=== PATIENT | female | born 1995 | race Caucasian/White ===

== ENCOUNTER 2022-11-20 10:42 | Outpatient (CLI) | payer MEDICAID, SELFPAY ==
[2022-11-20 15:35] LABS: Chlamydia DNA Amplified* NOT DETECTED (No Detected); GC DNA Amplified* NOT DETECTED (No Detected)
== END 2022-11-20 10:43 | disposition home or self-care (01) ==
PROVIDERS: PCP Obstetrics & Gynecology; Visit Provider Registered Nurse
DX: Z34.91 Encounter for supervision of normal pregnancy, unspecified, first trimester (principal); Z3A.08 8 weeks gestation of pregnancy
CPT/HCPCS: 76817; 86592; 86703; 86762; 86787; 86803; 86850; 86870; 86900; 86901; 87086; 87340; 87491; 87591

== ENCOUNTER 2022-12-18 10:45 | Outpatient (CLI) | payer MEDICAID, SELFPAY | END 2022-12-18 10:46 | disposition home or self-care (01) | LOC: NFLDREF 12-20 09:21 | PROVIDERS: Referring Provider Obstetrics & Gynecology; Visit Provider Registered Nurse | DX: Z34.90 Encounter for supervision of normal pregnancy, unspecified, unspecified trimester (principal) | CPT/HCPCS: 86850 ==

== ENCOUNTER 2023-02-12 13:50 | Outpatient (CLI) | payer MEDICAID, SELFPAY ==
--- NOTE | 2023-02-12 14:00 | CRLHL7_ITS ---
For Patients: As a result of the Century Cures Act, medical imaging exams and procedure reports are released immediately into your electronic medical record. You may view this report before your referring provider. If you have questions, please contact your health care provider. INDICATION: Evaluate anatomy. COMPARISON: 11/20/2022 TECHNIQUE: Real time schofield scale imaging of the fetus was performed as well as color Doppler analysis of the umbilical vessels. FINDINGS: Sonographic imaging demonstrates a single living intrauterine gestation. Fetus demonstrates a regular cardiac rate of 150 beats per minute. Fetus has a variable position. The placenta lies posteriorly without evidence of placenta previa. The edge of the placenta is located 5.7 cm from the internal cervical os. Amniotic fluid volume appears normal. Single deepest vertical pocket: 3.6 cm. The cervix is closed and measures 3.8 cm in length. The composite ultrasound gestational age is calculated at 20 weeks 3 days with an estimated sonographic due date of 06/29/2023. The estimated weight is 343 grams which lies at the 29th %. The following biometric measurements were obtained: Biparietal diameter: 4.8 cm/20 weeks 4 days 48th% Head circumference: 18.1 cm/20 weeks 3 days 37th% Abdominal circumference: 14.8 cm/20 weeks 0 days 27th% Femur length: 3.3 cm/20 weeks 3 days 37th% The HC/AC ratio measures: 1.22 range (1.07-1.25) On anatomic survey, there is a normal appearance of the cerebral ventricles, cavum septi pellucidi, cisterna magna and cerebellum. The nose, lips, and facial profile appear normal. The cervical, thoracic and lumbar spine are well visualized and appear normal. There is a normal four-chamber heart view and the left and right ventricular outflow tracts appear normal. The diaphragm and stomach appear normal. The kidneys and bladder also appear normal. There is a normal three-vessel cord and cord insertion site. The four extremities appear normal. IMPRESSION: Normal OB ultrasound exam with concordance of clinical and sonographic dating. No intrinsic abnormalities noted on anatomic survey. Dictated by Andrez Rod MD @ 02/12/2023 3:30:13 PM (Electronically Signed)
== END 2023-02-12 13:51 | disposition home or self-care (01) ==
LOC: US 13:51
PROVIDERS: Visit Provider Advanced Practice Midwife
DX: Z34.92 Encounter for supervision of normal pregnancy, unspecified, second trimester (principal); Z3A.20 20 weeks gestation of pregnancy
CPT/HCPCS: 76805

== ENCOUNTER 2023-04-05 11:10 | Outpatient (CLI) | payer MEDICAID, SELFPAY | END 2023-04-05 11:11 | disposition home or self-care (01) | LOC: NFLDREF 04-07 06:21 | PROVIDERS: Visit Provider Advanced Practice Midwife | DX: Z34.90 Encounter for supervision of normal pregnancy, unspecified, unspecified trimester (principal) | CPT/HCPCS: 86592 ==

== ENCOUNTER 2023-06-01 10:00 | Outpatient (CLI) | payer OTHER, SELFPAY | END 2023-06-01 10:01 | disposition home or self-care (01) | LOC: NFLDREF 06-03 12:32 | PROVIDERS: Visit Provider Advanced Practice Midwife | DX: Z34.03 Encounter for supervision of normal first pregnancy, third trimester (principal) | CPT/HCPCS: 87081; 87653 ==

== ENCOUNTER 2023-06-07 13:01 | Outpatient (CLI) | payer OTHER, SELFPAY ==
--- NOTE | 2023-06-07 13:00 | CRLHL7_ITS ---
For Patients: As a result of the Century Cures Act, medical imaging exams and procedure reports are released immediately into your electronic medical record. You may view this report before your referring provider. If you have questions, please contact your health care provider. INDICATION: Follow up growth. Thirty-seven week 0 day gestation TECHNIQUE: Real time shcofield scale imaging of the fetus was performed. COMPARISON: None FINDINGS: There is a kent gestation in vertex presentation. Amniotic fluid is polyhydramnios. Single deepest vertical pocket: 8.7 cm. heart rate is 138 beats per minute. Cervix was not visualized. Placenta is posterior. BIOMETRY DATA: BPD is 9.3 cm 37 weeks 4 days. 81% Head circumference is 33.5 cm 38 weeks 2 days. 56% Abdominal circumference is 32.3 cm 36 weeks to days. 41% Femur length is 6.9 cm 35 weeks 1 days. 10% Head/abdomen ratio is 1.04. Estimated weight is 2909 grams. Percentile 38%. Gestational age by ultrasound 36 weeks 6 days. Estimated date of delivery by ultrasound 06/29/2023. IMPRESSION: 1. Single intrauterine . Measurements are consistent with dates. 2. Polyhydramnios. Dictated by Linden Ding MD @ 06/08/2023 8:39:43 AM (Electronically Signed)
== END 2023-06-07 13:02 | disposition home or self-care (01) ==
LOC: US 13:02
PROVIDERS: Visit Provider Advanced Practice Midwife
DX: Z34.03 Encounter for supervision of normal first pregnancy, third trimester (principal); O40.3XX0 Polyhydramnios, third trimester, not applicable or unspecified; Z3A.37 37 weeks gestation of pregnancy
CPT/HCPCS: 76816

== ENCOUNTER 2023-06-15 12:18 | Outpatient (CLI) | payer OTHER, SELFPAY ==
--- NOTE | 2023-06-15 12:15 | CRLHL7_ITS ---
For Patients: As a result of the Century Cures Act, medical imaging exams and procedure reports are released immediately into your electronic medical record. You may view this report before your referring provider. If you have questions, please contact your health care provider. OBSTETRICAL ULTRASOUND LIMITED- BIOPHYSICAL PROFILE, 06/15/2023 INDICATION: Polyhydramnios; biophysical profile. 1, para 0 MARVIN by LMP: 06/28/2023 Gestational age: 38 weeks 1 day COMPARISON: 06/07/2023 TECHNIQUE: Transabdominal obstetrical ultrasound. FINDINGS: Gestation: Single Cervix: Not visualized positioning: Vertex Amniotic fluid: 8.0 cm SDP SHEREEN: 19.0 cm BIOPHYSICAL PROFILE: Total score: 6/8 Gross body movements: 2 tone: 2 Respiratory activity: 0 Amniotic fluid SDP: 2 Placenta position: Posterior heart rate: 135 bpm There is the appearance of some dilated fluid-filled bowel loops present in the abdomen. IMPRESSION: 1) Biophysical profile score is 6 of 8. 2) Visualization of fluid-filled dilated bowel loops within the fetus measuring up to 1.9 cm. 3) Polyhydramnios with SHEREEN measuring 19 cm. ADRIENNE GRAVES M.D. Diagnostic/Breast Radiologist [email or web address] Transcribed: 10:[address]/Dictated by: Adrienne Graves MD @ 06/17/2023 6:56:00 AM (Electronically Signed)
== END 2023-06-15 12:19 | disposition home or self-care (01) ==
LOC: US 12:18
PROVIDERS: Visit Provider Advanced Practice Midwife
DX: O40.3XX0 Polyhydramnios, third trimester, not applicable or unspecified (principal); Z3A.38 38 weeks gestation of pregnancy
CPT/HCPCS: 76819

== ENCOUNTER 2023-06-30 19:53 | Inpatient (IN) | payer OTHER, SELFPAY ==
[2023-06-30 19:30] VITALS: BP 130/85; PULSE 73
[2023-06-30 19:35] VITALS: RESP 18; TEMP 37
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
[2023-06-30 20:44] VITALS: BMI 24.4
[2023-06-30 22:57] VITALS: RESP 18; TEMP 37.2
[2023-06-30 23:05] VITALS: BP 125/75; PULSE 111
[2023-07-01] VITALS (52 sets, daily range): BP systolic 92–143; BP diastolic 55–91; PULSE 69–120; RESP 16–18; TEMP 36.4–37.2; O2SAT 91–100
[2023-07-01] MEDS: LACTATED RINGERS 1000 ML 1,000 ML IV ×3 (02:37→04:54)
[2023-07-01] MEDS: PHENYLEPHRINE 100 MCG/ML SYRINGE IVP ×4 (03:18→03:53)
[2023-07-01] MEDS: ePHEDrine sulfate 5 MG/ML inj 10 MG IVP (03:57)
[2023-07-01] MEDS: OXYTOCIN 30 unit/500 ML in NS 30 UNIT/500 ML BAG 300 UNIT IVPB (05:23)
[2023-07-01] MEDS: miSOPROStoL 800 MCG/4 TABLET PR (06:08)
[2023-07-01] MEDS: LIDOCAINE 1 % PF 30 ML INJECTION (06:08)
--- NOTE | 2023-07-01 06:32 | W.PM.OBVAGDE ---
OB Procedure Vag Delivery Mother Details Mother Details: The patient is a 27 year-old, 1, Para 0, admitted on 06/30/23 at 40.3Days gestation. Additional Details Amniotic Membrane Status: intact Amniotic Membrane Rupture Date: 06/30/23 Amniotic Membrane Rupture Time: 23:36 Heart: heart tones during second stage were [] Delivery Details Delivery Date: 07/01/23 Delivery Time: 05:17 Infant Gender: Male Infant Viability: Alive; Heart Rate Present Delivery Details: Delivered over [intact perineum] via [spontaneous] vaginal delivery. was placed on maternal abdomen.? Cord was clamped and cut after a 30-60 second delay. Nose and mouth were bulb suctioned.? weight pending. Additional Details Shoulder Dystocia: No Event Summary Status: Mother and were stable after delivery.
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
--- NOTE | 2023-07-01 06:55 | PM.ANBPRC ---
[facility] Medical History (Updated 06/30/23 @ 20:42 by La Walker CNM) History of eating disorder ?Z86.59 - Personal history of other mental and behavioral disorders (ICD-10) Surgical History (Updated 11/20/22 @ 13:33 by Anna Wright CNP) S/P hernia surgery ?Z98.890 - Other specified postprocedural states (ICD-10) ?Z87.19 - Personal history of other diseases of the digestive system (ICD-10) Social History What is your current living situation?: I presently have a place to live Problems where you live: no known problems In the past 12 months, utilities in danger of being shut off: no In past 12 months, lack of transportation kept you from medical appts, meetings, work, or getting things needed for daily living: no In the past 12 mos, have been you worried that your food would run out before you had money to buy more?: never true In the past 12 mos, the food you bought just didn't last and you didn't have money to buy more?: never true Smoking Status: Never smoker How often does anyone, including family, friends and others, physically hurt you: never How often does anyone, including family, friends and others, insult or talk down to you: never How often does anyone, including family, friends and others, threaten you with harm: never How often does anyone, including family, friends and others, scream or curse at you: never Little interest or pleasure in doing things: not at all Feeling down, depressed, or hopeless: not at all Meds Home Medications and Allergies Home Medications Medication Instructions Recorded Confirmed Type docosahexaenoic acid 200 mg 200 mg PO DAILY 11/20/22 06/30/23 History capsule ( DHA) Allergies Allergy/AdvReac Type Severity Reaction Status Date / Time No Known Drug Allergies Allergy Verified 06/29/23 12:51 Results Vital Signs Vital Signs: Last Vital Signs Temp 98.9 F 07/01/23 06:05 Pulse 86 07/01/23 06:52 Resp 18 07/01/23 06:05 BP 116/61 07/01/23 06:52 Pulse Ox 100 07/01/23 04:09 Weight: 70.715 kg Height: 170.18 cm Anesthesia Procedures Intrathecal Patient Location: OB Start Time: 03:00 Stop Time: 03:45 Start Date: 07/01/23 Stop Date: 07/01/23 Reason for Block: procedure for pain Patient Position: sitting Performed By: Bessie Rosario Preanesthetic Checklist: IV checked, site marked, risks and benefits discussed, monitors and equipment checked, pre-op evaluation, timeout performed and anesthesia consent Prep: chlorhexidine gluconate Monitoring: blood pressure monitoring, continuous pulse oximetry and heart rate Approach: midline Vertebral Space: lumbar (1-5) Needle Type: Pencan Injection Technique: single-shot Needle gauge: 25 Needle Length (cm): 10 cm
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
[2023-07-01] MEDS: DOCUSATE SODIUM 100 MG CAPSULE PO (10:17)
--- NOTE | 2023-07-01 14:12 | PM.ANPOST ---
Post Anesthesia Note Post Anesthesia Note Patient seen: Inpatient Respiratory Status: adequate Cardiovascular Status: adequate Mental Status: baseline Pain: adequate Temp: baseline Anesthetic awareness: N/A Complications: none Follow care: none
[2023-07-01] MEDS: ESCITALOPRAM 10 MG TABLET PO (21:10)
[2023-07-02 02:57] VITALS: BP 133/86; PULSE 77; RESP 16; TEMP 36.5; O2SAT 98
[2023-07-02] MEDS: IBUPROFEN 600 MG TABLET PO ×2 (06:35→13:50)
[2023-07-02 08:55] VITALS: BP 133/79; PULSE 72; RESP 16; TEMP 36.6; O2SAT 98
--- NOTE | 2023-07-02 10:32 | P.DS_ITS ---
DS: Providers Provider Date Seen: 07/02/23 Date of admission: 06/30/23 19:53 Primary care physician: Not a Local Provider Admitting Clinician: La Walker CNM Attending Physician on discharge: Sandra Meek CNM Date of Discharge: 07/02/23 DS: Diagnosis Discharge Diagnosis (1) care and examination immediately after delivery: Status: Acute (2) Lactating mother: Status: Acute Exam Narrative: Exam Narrative: GENERAL APPEARANCE:? normal affect, alert, no distress MOOD:? appropriate CHEST:? clear to auscultation HEART:? regular rate and rhythm ABDOMEN:? soft, non-tender the uterine fundus is firm At Umbilicus, Midline and is appropriate for the stage of recovery. PERINEUM:? mild edema of the perineum, there is a Perineal Laceration,? 2nd degree that is healing well. EXTREMITIES:? normal and no edema Const: Vital Signs, click to edit/add: Vital Signs - 24 hr 07/01/23 12:39 07/01/23 15:52 07/01/23 16:52 Temperature 98.3 F Pulse Rate [Blood Pressure Cuff] 105 H 78 Respiratory Rate 16 16 Blood Pressure [Le ft Arm] 126/83 134/91 H 123/83 Pulse Oximetry 100 94 Oxygen Delivery Me thod Room Air 07/01/23 21:40 07/02/23 02:57 07/02/23 08:55 Temperature 97.6 F 97.7 F 97.8 F Pulse Rate [Blood Pressure Cuff] 87 77 72 Respiratory Rate 16 16 16 Blood Pressure [Le ft Arm] 122/80 133/86 133/79 Pulse Oximetry 98 98 98 Oxygen Delivery Me thod Room Air Room Air Room Air Documenting provider has reviewed patient's vital signs: yes OB - DS: Summary Hospital Course Hospital Course: Tasia is a 27 y.o. who was admitted to L & D for labor. ?She had an uncomplicated NVD.?The patient feels well. ?The pain is well controlled with current medications. ?She has no new complaints. ?She is breast feeding and reports things are going well.? the patient has done well.? Vitals have been stable.? She has remained afebrile.? Has a good appetite, is tolerating a general diet. ?She is voiding without difficulty.? She is passing gas and has not had a bowel movement.? She is ambulating and denies any dizziness.? Has Small amount of rubra lochia. ?She is undecided about prevention. Peripartum Data delivery method: Vaginal Laceration description: Perineal - 2nd Degree complications: none [place] Gender: Male Infant Discharge Plan: Home Status at Discharge Functional status at discharge: independent ambulation Overall status at discharge: patient is progressing back to baseline Time Spent with Patient Time attestation: Total time spent providing and/or coordinating discharge services: Time spent: Less than 30 minutes Discharge Plan Discharge Disposition: Home, Self-Care Date of Admission: 06/30/23 19:53 Attending Provider on Discharge: Sandra Meek Primary Care Provider: Provider,Not a Local Condition: Stable Anticipated Discharge Date/Time: 07/02/23 12:00 Discharge Medications: New acetaminophen 500 mg Tablet 1,000 mg PO Q6H PRNQty: 0 0RF docusate sodium 100 mg Capsule 100 mg PO DAILY Qty: 90 2RF ibuprofen 600 mg Tablet 600 mg PO Q6H PRNQty: 30 0RF Continued DHA 200 mg capsule 200 mg PO DAILY hydroxyzine HCl 10 mg tablet 10 mg PO QHS PRN (Reason: sleep) Qty: 90 4RF escitalopram oxalate [Lexapro] 10 mg tablet 10 mg PO QDAY Qty: 90 0RF Discharge Orders: Discharge Order (Routine); Ordered 07/02/23 Ordered By: Sandra Meek Patient Education: OB Over the Counter Medication Information, OB Vaginal/Breast Feeding Additional Instructions: Discharge instructions were reviewed with the patient including signs and symptoms of infection and home going medications Nothing vaginally for 6 weeks: no tampons or intercourse Off Work or School for 6 weeks 2-week visit: discuss feeding concerns, review control options and screen for anxiety/depression. 6-week visit for an annual exam. consultation services are available to all mothers and babies for the first year after delivery.? To make an appointment, please call [phone]. Activity Level: Activity as Tolerated Discharge Diet: Regular Follow Up Appointments: Provider,Not a Local [Primary Care Provider] - [facility] [Provider Group] Forms: [facility] Info Instructions
[2023-07-02] MEDS: DOCUSATE SODIUM 100 MG CAPSULE PO (13:52)
--- NOTE | 2023-07-09 07:54 | PM.OBCN1 ---
OB - CN: HPI Date of Consult Date Seen: 07/01/23 Patient: [facility] Patient Consult date: 07/09/23 Requesting Physician: La Walker CNM Primary Care Provider: Not a Local Provider Consult Narrative Narrative: The patient is a 27 year old G 1 P 1 at 40 3/7 weeks gestation that has just delivered vaginally. I was consulted by PRIYANK for potential manual removal of placenta as it has been now more than 30 minutes and placenta has not delivered. So far, no concerns with heavy bleeding. Maternal status stable. History History 1 Elective abortions Para 1 Spontaneous abortions Hx # Term Pregnancies Ectopic pregnancies Hx # Pregnancies Multiple births Number of Living Children 0 Labs Blood type: A (+) positive GBS status: negative OB Labs: Lab Assessment Start: 06/30/23 20:00 Freq: ONCE Status: Complete Protocol: PC.OBGBS Activity Type Activity Date Activity User E-sign Co-sign Detail Recorded Client Recorded Date Recorded By Document 06/30/23 20:37 JASPER [id number] 06/30/23 20:38 JASPER 06/30/23 20:37 Lab Assessment GBS Status negative GBS Additional Criteria None No Treatment Needed OK Are Labs Available Yes Maternal Blood Type A Maternal RH Factor Positive Evaluate Maternal Rubella Immune Status Immune Hepatitis B Surface Antigen Negative Maternal HIV Status Negative Maternal Syphillis (RPR) Status Negative [facility] Medical History (Updated 07/07/23 @ 00:01 by Luna Mendiola) History of eating disorder ?Z86.59 - Personal history of other mental and behavioral disorders (ICD-10) Surgical History (Updated 11/20/22 @ 13:33 by Anna Wright CNP) S/P hernia surgery ?Z98.890 - Other specified postprocedural states (ICD-10) ?Z87.19 - Personal history of other diseases of the digestive system (ICD-10) Social History What is your current living situation?: I presently have a place to live Problems where you live: no known problems In the past 12 months, utilities in danger of being shut off: no In past 12 months, lack of transportation kept you from medical appts, meetings, work, or getting things needed for daily living: no In the past 12 mos, have been you worried that your food would run out before you had money to buy more?: never true In the past 12 mos, the food you bought just didn't last and you didn't have money to buy more?: never true Smoking Status: Never smoker How often does anyone, including family, friends and others, physically hurt you: never How often does anyone, including family, friends and others, insult or talk down to you: never How often does anyone, including family, friends and others, threaten you with harm: never How often does anyone, including family, friends and others, scream or curse at you: never Little interest or pleasure in doing things: not at all Feeling down, depressed, or hopeless: not at all Meds Home Medications and Allergies Home Medications Medication Instructions Recorded Confirmed Type docosahexaenoic acid 200 mg 200 mg PO DAILY 11/20/22 06/30/23 History capsule ( DHA) Allergies Allergy/AdvReac Type Severity Reaction Status Date / Time No Known Drug Allergies Allergy Verified 06/29/23 12:51 OB - H&P: Exam Physical Exam: Vital signs: Temp Pulse Resp BP Pulse Ox O2 Del Method 97.8 F 72 16 133/79 98 Room Air 07/02/23 08:55 07/02/23 08:55 07/02/23 08:55 07/02/23 08:55 07/02/23 08:55 07/02/23 08:55 Narrative: Upon arrival to the room umbilical cord clamped with a long Emi forceps. Gentle traction of umbilical cord did not produce significant descent of umbilical cord or no other signs of placental detachment and delivery. Patient with intrathecal anesthesia and still with good coverage for pain. I then proceeded to perform a manual evaluation and sweep for removal of placenta. At this time about half of the placenta palpated at the cervix. A gentle manual sweep was performed and placenta delivered right after. Uterus was palpated well contracted and no concerns for persistent bleeding. She had received 100 mcg of rectal Cytotec after delivery. Evaluation of placenta performed and this was confirmed to be complete. Patient tolerated procedure well. Care resumed by CNM. OB - CN: A/P Assessment and Plan (1) care and examination immediately after delivery: Status: Acute (2) Lactating mother: Status: Acute Plan Consult for manual delivery of retained placenta after spontaneous vaginal delivery. Patient tolerated procedure well. Care will be resumed by CNM. Re consult if needed.
== END 2023-07-02 15:02 | disposition home or self-care (01) | DRG 541 ==
LOC: OB OUT 19:54 → OB 19:54
PROVIDERS: Admitting Provider Advanced Practice Midwife; Visit Provider Advanced Practice Midwife
DX: O99.344 Other mental disorders complicating childbirth (principal); F41.9 Anxiety disorder, unspecified; F43.10 Post-traumatic stress disorder, unspecified; Z62.810 Personal history of physical and sexual abuse in childhood; O73.0 Retained placenta without hemorrhage; O77.0 Labor and delivery complicated by meconium in amniotic fluid; O70.1 Second degree perineal laceration during delivery; Z3A.40 40 weeks gestation of pregnancy; Z37.0 Single live birth
CPT/HCPCS: 01967; 85025; 86592; 86850; 86900; 86901; A9270; J2001; J2371; J7120

== ENCOUNTER 2024-07-19 09:12 | Outpatient (CLI) | payer OTHER, SELFPAY ==
--- NOTE | 2024-07-19 09:15 | CRLHL7_ITS ---
For Patients: As a result of the Century Cures Act, medical imaging exams and procedure reports are released immediately into your electronic medical record. You may view this report before your referring provider. If you have questions, please contact your health care provider. OB < 14 WEEKS CLINICAL HISTORY: Dating, viability. TECHNIQUE: Real time schofield scale imaging of the fetus was performed transvaginally. COMPARISON: None. FINDINGS: LMP: 05/17/2024. MARVIN by LMP: 02/21/2025. GA: 9 weeks 0 days. CRL: 2.3 cm, 9 weeks 0 days. MARVIN 02/21/2025. FHR: 171 bpm. Gest Sac: 3.3 cm, appears within normal limits. Yolk Sac: 4.1 mm, appears within normal limits. Right Ovary: 2.7 x 2.6 2.7 cm, within normal limits. Left Ovary: 2.8 x 1.6 x 2.7 cm, within normal limits. IMPRESSION: 1. Sonographic gestational age 9 weeks 0 days and sonographic due date 02/21/2025. 2. Subchorionic hemorrhage measures 2.2 x 0.9 x 0.8 cm. Andrez Rod M.D. Diagnostic Radiologist [email or web address] Transcribed: 1:04 pm DW/Dictated by: Andrez Rod MD @ 07/19/2024 12:56:00 PM (Electronically Signed)
== END 2024-07-19 09:13 | disposition home or self-care (01) ==
LOC: US 09:13
PROVIDERS: Visit Provider Advanced Practice Midwife
DX: Z34.91 Encounter for supervision of normal pregnancy, unspecified, first trimester (principal); O20.9 Hemorrhage in early pregnancy, unspecified; Z3A.09 9 weeks gestation of pregnancy
CPT/HCPCS: 76817

== ENCOUNTER 2024-07-19 10:23 | Outpatient (CLI) | payer OTHER, SELFPAY | END 2024-07-19 10:24 | disposition home or self-care (01) | PROVIDERS: Visit Provider Advanced Practice Midwife | DX: Z34.91 Encounter for supervision of normal pregnancy, unspecified, first trimester (principal); Z3A.09 9 weeks gestation of pregnancy | CPT/HCPCS: 83020; 83021; 85660; 86592; 86703; 86704; 86706; 86762; 86787; 86803; 86850; 86900; 86901; 87086; 87340 ==

== ENCOUNTER 2024-10-12 09:35 | Outpatient (CLI) | payer OTHER, SELFPAY ==
--- NOTE | 2024-10-12 09:15 | CRLHL7_ITS ---
For Patients: As a result of the Century Cures Act, medical imaging exams and procedure reports are released immediately into your electronic medical record. You may view this report before your referring provider. If you have questions, please contact your health care provider. OBSTETRICAL ULTRASOUND ??? ANATOMY SURVEY, 10/12/2024 INDICATION: anatomy survey. CLINICAL HISTORY: LMP: 05/17/2024 MARVIN by LMP: 02/21/2025 Gestational age: 21 weeks 1 day TECHNIQUE: Real-time schofield-scale transabdominal imaging of the fetus was performed. PREVIOUS ULTRASOUND: 07/19/2024 FINDINGS: position: Multiple positions; vertex, transverse, head to maternal right, left. Cervix: Visualized Technique: Transabdominal Length of closed cervix: 5.0 cm Placenta position: Anterior Technique: Transabdominal Placenta tip to internal os: 5+ cm Umbilical cord: 3-vessel cord Placental insertion: Central Amniotic fluid: 4.1 cm SDP (greater than/equal to 2 to less than 8 cm) ANATOMY SURVEY: Observed Structures Cerebellum: Yes; 2.4 cm, 23 weeks 2 days Cisterna magna: Yes; 4.8 mm Nuchal fold: Yes; 6.5 mm Lateral ventricle: Yes; 6.6 mm CSP: Yes Midline falx: Yes Choroid plexus: Yes Spine: Yes Stomach: Yes Abdominal cord insert: Yes Urinary bladder: Yes Kidneys: Yes Diaphragm: Yes Nose/lips: Yes Orbital view: Yes Profile: Yes Upper extremities: Yes Lower extremities: Yes Hands: Yes Feet: Yes 4-chamber heart: Yes, incomplete visualization LVOT: Yes, suboptimal due to position RVOT: Yes, suboptimal due to position 3VV: Yes, suboptimal due to position 3VTV: Yes, suboptimal due to position BIOMETRY BPD: 5.1 cm, 21 weeks 3 days, 58% HC: 19.0 cm, 21 weeks 2 days, 46% AC: 15.8 cm, 20 weeks 6 days, 35% FL: 3.6 cm, 21 weeks 2 days, 44% FL/AC: 22.53% HC/AC ratio: 1.2 heart rate: 159 bpm age by this ultrasound: 21 weeks 4 days MARVIN by this ultrasound: 02/18/2025 Estimated weight: 397.90 grams (0 pounds 14 ounces) Percentile by MARVIN: 41% IMPRESSION: 1) Concordance of clinical and sonographic dating. 2) Incomplete visualization of the 4-chamber heart, outflow tracts, 3-vessel view and 3-vessel trachea view due to position. Remainder of the anatomic survey is normal. Short-term follow-up is recommended. ANDREZ DE LEON M.D. Diagnostic Radiologist [employer] [email or web address] Transcribed: 12:[address]/Dictated by: Andrez De Leon MD @ 10/16/2024 9:57:00 AM (Electronically Signed)
== END 2024-10-12 09:36 | disposition home or self-care (01) ==
LOC: US 09:36
PROVIDERS: Visit Provider Advanced Practice Midwife
DX: Z34.92 Encounter for supervision of normal pregnancy, unspecified, second trimester (principal); O35.BXX0 Maternal care for other (suspected) fetal abnormality and damage, fetal cardiac anomalies, not applicable or unspecified; Z3A.21 21 weeks gestation of pregnancy
CPT/HCPCS: 76805

== ENCOUNTER 2024-10-26 11:58 | Outpatient (CLI) | payer OTHER, SELFPAY ==
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
--- OUTSIDE RECORDS SUMMARY | 2024-10-04 13:30 | XMS_ITS | Encounter Summary ---
Author Organization [facility] Address [address] [place] [address] Care Team Providers Care Steel Detailer Name Role Phone Mari Manning CHIEF DEPUTY CORONER Unavailable [phone] Mari Manning CHIEF DEPUTY CORONER Unavailable Flora Smith NP Primary Care Provider [facility] [place] Unav[facility] e Encounter Details Date Type Department Care Team (Late st Contact Info) Description 10/04/2024 1:30 PM CDT Virtual Visit [facility] Mental Health & Addiction [facility] [address] [place] [address] Mari Manning, CHIEF DEPUTY CORONER [facility] [address] [place], [place] [id number] Anxiety disorder, unspecified type (Primary Dx) Social [...] often do you attend chur ch or episcopalian services? Never 03/25/2023 Do you belong to any clubs o r organizations such as oriental orthodox groups, unions, fraternal or athletic groups, or [...] Answer Date Recorded PHQ-2 Score 0 09/15/2024 [facility] - Occupational Stress [...] in an abandoned building, in an overnight mcfp, or couch-surfing.) Yes 03/25/2023 Are you worried [...] this encounter Progress Notes * Mari Manning, CHIEF DEPUTY CORONER - 10/04/2024 1:30 PM CDT Images from the original note were not included. [facility] Counseling Progress Note Patient Name: Tasia Morillo Date: 10/04/2024 Service Type: Individual Session Start Time: 1:30 Session End Time: 2:30 Session Length: 53+ Extended Session (53+ minutes): - Patient's presenting concerns require more intensive interventionthan could be completed within the usual service Interactive Complexity: No Crisis: No Session #: 38 Attendees: Client attended alone Service Modality: Video [...] Chart Mode of Communication: Video Conference via [facility] Distant Location (Provider): Off-site As the provider I attest to compliance with applicable laws and regulations related to telemedicine. DATA Progress Since Last Session (Related to Symptoms / Goals / Homework): Symptoms: Improving Homework: n/a Episode of Care Goals: Satisfactory progress - ACTION (Actively working towards change); Intervenedby reinforcing change plan / affirming steps taken Current / Ongoing Stressors and Concerns: Feeling content and optimistic about groove she and are in right now. Continuing to address boundary setting with extended family, primarily mother has strong opinions. Treatment Objective(s) Addressed in This Session: Perspective [...] regulation and mindfulness. Small steps toward self-care. Continue boundary setting. Mari Manning, CHIEF DEPUTY CORONER Individual Treatment Plan Patient's Name: Tasia Morillo [...] Description 10/30/2024 2:00 PM CDT Virtual Visit [facility] Mental Health & Addiction [address] [address] Mari Manning LMFT [facility] [address] [place] [address] 11/20/2024 12:00 PM CDT Virtual Visit [facility] & Addiction [address] [address] Mari Manning LMFT [facility] [address] [place] [address] 12/11/2024 12:00 PM CDT Virtual Visit [facility] Addiction [address] [address] Mari Manning LMFT [facility] [address] [place] [address] 12/25/2024 12:00 PM CDT Virtual Visit [facility] & Addiction [address] [address] Mari Manning LMFT [facility] [address] [place] [address] 01/11/2025 12:30 PM CDT Virtual Visit [facility] Mental Health & Addiction [facility] [address] [place] [phone] Mari Manning LMFT [facility] [address] [place] [address] 01/25/2025 12:30 PM CDT Virtual Visit [facility] Mental [facility] & Addiction [facility] [address] [place] [address] Mari Manning LMFT [facility] [address] [place] [address] documented as of this encounter Visit Diagnoses Diagnosis Anxiety disorder, unspecified type- Primary documented in this encounter Additional Health Concerns Assessment Noted Time PHQ-9 Depression Total Score: 1 09/16/19 25 1:04 PM CDT documented as of this encounter Care Teams Steel Detailer Relationship Specialty Start Date End Date Flora Smith NP [facility] [address] [place] [address] PCP - General Family Medicine 08/26/23 Mari Manning LMFT [facility] [address] [place] [address] Marriage & Family Therapist 04/15/23 Mari Manning LMFT [facility] [address] [place] [address] Assigned Behavioral Health Provider 04/24/23 Clinic - [place], [facility] [address] [place] [address] Assigned PCP 08/31/23 documented as of this encounter
--- OUTSIDE RECORDS SUMMARY | 2024-10-16 13:00 | XMS_ITS | Encounter Summary ---
Author Organization [facility] Address [address] [place] [address] Care Team Providers Care Plaster Maker Name Role Phone Mari Manning CABINETMAKER APPRENTICE Unavailable [phone] Mari Manning CABINETMAKER APPRENTICE Unavailable [phone] Flora Smith NP Primary Care Provider [facility] Encounter Details Date Type Department Care Team (Late st Contact Info) Description 10/16/2024 1:00 PM CDT Virtual Visit [facility] [address] [place] [address] Mari Manning, CABINETMAKER APPRENTICE [facility] [address] [place] [address] Anxiety disorder, unspecified type (Primary Dx) Social [...] often do you attend chur ch or adventist services? Never 03/25/2023 Do you belong to any clubs o r organizations such as anglican groups, unions, fraternal or athletic groups, or [...] Answer Date Recorded PHQ-2 Score 0 09/15/2024 [facility] - Occupational [...] in an abandoned building, in an overnight detention, or couch-surfing.) Yes 03/25/2023 Are you worried [...] this encounter Progress Notes * Mari Manning, CABINETMAKER APPRENTICE - 10/16/2024 1:00 PM CDT Images from the original note were not included. [facility] Progress Note Patient Name: Tasia Morillo Date: 10/16/2024 Service Type: Individual Session Start Time: 1:30 Session End Time: 2:30 Session Length: 53+ Extended Session (53+ minutes): - Patient's presenting concerns require more intensive interventionthan could be completed within the usual service Interactive Complexity: No Crisis: No Session #: 39 Attendees: Client attended alone Service Modality: Video [...] Chart Mode of Communication: Video Conference via [facility] Distant Location (Provider): Off-site As the provider I attest to compliance with applicable laws and regulations related to telemedicine. DATA Progress Since Last Session (Related to Symptoms / Goals / Homework): Symptoms: Improving Homework: n/a Episode of Care Goals: Satisfactory progress - ACTION (Actively working towards change); Intervenedby reinforcing change plan / affirming steps taken Current / Ongoing Stressors and Concerns: Back pain from injury which, in addition to being 21 weeks , she is struggling with mobility and patience. Reflected on conflict with last night and how they each contribute and respond in stressful events. Treatment Objective(s) Addressed in This Session: Perspective [...] toward self-care. Continue boundary setting. Mari Manning, CABINETMAKER APPRENTICE Individual Treatment Plan Patient's Name: Tasia Morillo [...] Description 10/30/2024 2:00 PM CDT Virtual Visit [facility] [address] [address] Mari Manning LMFT [facility] [address] [place] [address] 11/20/2024 12:00 PM CDT Virtual Visit [facility] & [facility] [address] [address] Mari Manning LMFT [facility] [address] [place] [address] 12/11/2024 12:00 PM CDT Virtual Visit [facility] [address] [address] Mari Manning LMFT [facility] [address] [place] [address] 12/25/2024 12:00 PM CDT Virtual Visit [facility] [address] [address] Mari Manning LMFT [facility] [address] [place] [address] 01/11/2025 12:30 PM CDT Virtual Visit [facility] [address] [place] [address] Mari Manning LMFT [facility] [address] [place] [address] 01/25/2025 12:30 PM CDT Virtual Visit [facility] [address] [place] [address] Mari Manning LMFT [facility] [address] [place] [address] documented as of this encounter Visit Diagnoses Diagnosis Anxiety disorder, unspecified type- Primary documented in this encounter Additional Health Concerns Assessment Noted Time PHQ-9 Depression Total Score: 1 09/16/19 25 1:04 PM CDT documented as of this encounter Care Teams Plaster Maker Relationship Specialty Start Date End Date Flora Smith NP [facility] [address] [place] [address] PCP - General Family Medicine 08/26/23 Mari Manning LMFT [facility] [address] [place] [address] Marriage & Family Therapist 04/15/23 Mari Manning LMFT [facility] [address] [place] [address] Assigned Behavioral Health Provider 04/24/23 Clinic - [facility] [address] [place] [address] Assigned PCP 08/31/23 documented as of this encounter
--- NOTE | 2024-10-26 12:15 | CRLHL7_ITS ---
For Patients: As a result of the Century Cures Act, medical imaging exams and procedure reports are released immediately into your electronic medical record. You may view this report before your referring provider. If you have questions, please contact your health care provider. OB ULTRASOUND MARVIN by LMP: 02/21/2025. GA: 23 w, 1 d. Single. Comparison: 10/12/2024, 07/19/2024. INDICATION: Suboptimal heart views. TECHNIQUE: Real time grayscale imaging of the fetus was performed. Transabdominal. CERVIX: Visualized. TA Measurement: 4.2 cm. POSITIONING: Transverse. AMNIOTIC FLUID: 5.5 cm. SDP (N: greater than 2 x 1 cm) PLACENTA: Technique: Transabdominal. PLACENTA POSITION: Anterior. DOPPLER: heart rate: 159 bpm. IMPRESSION: Normal four chamber heart, outflow tracts, three-vessel view, and three-vessel trachea. Andrez Rod M.D. Diagnostic Radiologist [facility] [employer] [email or web address] JERARDO/justin anderson/Dictated by: Andrez Rod MD @ 10/26/2024 12:52:00 PM (Electronically Signed)
--- OUTSIDE RECORDS SUMMARY | 2024-10-27 01:02 | XMS_ITS | Encounter Summary ---
Author Organization [facility] Address [address] [place] [address] Care Team Providers Care Horticultural Specialty Grower Name Role Phone Mari Manning BACON STRINGER Unavailable [phone] Mari Manning BACON STRINGER Unavailable Flora Smith NP Primary Care Provider [facility] Encounter Details Date Type Department Care Team (Late st Contact Info) Description 10/11/2024 MyC Medical Advice [facility] & Addiction [facility] [address] [place] [address] Mari Manning, BACON STRINGER [facility] [address] [place], [place] [address] Social History Tobacco Use Types Packs/Day Years [...] often do you attend chur ch or synagogue services? Never 03/25/2023 Do you belong to any clubs o r organizations such as sabianism groups, unions, fraternal or athletic groups, or [...] Answer Date Recorded PHQ-2 Score 0 09/15/2024 [facility] Occupat ional Health - [...] Answer Date Recorded Do you have housing? (Mariela g is defined as stable permanent housing and does not include staying outside in a car, in a tent, in an abandoned building, in an overnight [place] [facility], or couch-surfing.) Yes 03/25/2023 Are you worried [...] on file documented as of this encounter Plan of Treatment Upcoming Encounters Date Type Department Care Team (Late st Contact Info) Description 10/30/2024 2:00 PM CDT Virtual Visit [facility] Addiction [address] [address] Mari Manning LMFT [facility] [address] [place] [address] 11/20/2024 12:00 PM CDT Virtual Visit [facility] & Addiction [address] [address] Mari Manning [facility] [address] [place] [address] 12/11/2024 12:00 PM CDT Virtual Visit [facility] [address] [address] Mari Manning LMFT [facility] [address] [place] [address] 12/25/2024 12:00 PM CDT Virtual Visit [facility] & Addiction [address] [address] Mari Manning [facility] [address] [place] [address] 01/11/2025 12:30 PM CDT Virtual Visit [facility] [address] [place] [address] Mari Manning LMFT [facility] [address] [place] [address] 01/25/2025 12:30 PM CDT Virtual Visit [facility] [address] [place] [address] Mari Manning LMFT [facility] [address] [place] [address] documented as of this encounter Visit Diagnoses Not on filedocumented in this encounter Additional Health Concerns Assessment Noted Time PHQ-9 Depression Total Score: 1 09/16/19 25 1:04 PM CDT documented as of this encounter Care Teams Horticultural Specialty Grower Relationship Specialty Start Date End Date Flora Smith NP [facility] [address] [place] [address] PCP - General Family Medicine 08/26/23 Mari Manning LMFT [facility] [address] [place] [address] Marriage & Family Therapist 04/15/23 Mari Manning LMFT [facility] [address] [place] [address] Assigned Behavioral Health Provider 04/24/23 [facility] [address] [place] [address] Assigned PCP 08/31/23 documented as of this encounter
--- OUTSIDE RECORDS SUMMARY | 2024-10-27 01:02 | XMS_ITS | Encounter Summary ---
Author Organization [facility] Address [address] [place] [address] Care Team Providers Care Area Field Manager Name Role Phone Mari Manning VENDING SUPERVISOR Unavailable Mari Manning VENDING SUPERVISOR Unavailable [phone] Flora Smith NP Primary Care Provider [facility] Encounter Details Date Type Department Care Team (Late st Contact Info) Description 09/16/[address] [facility] [address] [place] [phone] Ifeoma Alvarado, CHANCE Social History Tobacco Use Types Packs/Day Years [...] often do you attend chur ch or orthodox services? Never 03/25/2023 Do you belong to any clubs o r organizations such as yarsani groups, unions, fraternal or athletic groups, or [...] PHQ-2 Answer Date Recorded PHQ-2 Score 0 07/30/2023 [facility] - [facility]ational Stress Questionnaire Answer Date Recorded [...] in an abandoned building, in an overnight long term, or couch-surfing.) Yes 03/25/2023 Are you worried [...] [facility] [address] [address] Mari Manning LMFT [facility] [address] [place] [address] 11/20/2024 12:00 PM CDT Virtual Visit [facility] [address] [address] Mari Manning LMFT [facility] [address] [place] [address] 12/11/2024 12:00 PM CDT Virtual Visit [facility] & [facility] [address] [address] Mari Manning LMFT [facility] [address] [place] [address] 12/25/2024 12:00 PM CDT Virtual Visit [facility] [address] [address] Mari Manning [facility] [address] [place] [address] 01/11/2025 12:30 PM CDT Virtual Visit [facility] Addiction [facility] [address] [place] [phone] Mari Manning LMFT [facility] [address] [place] [address] 01/25/2025 12:30 PM CDT Virtual Visit [facility] [address] [place] [phone] Mari Manning LMFT [facility] [address] [place] [address] documented as of this encounter Visit Diagnoses Not on filedocumented in this encounter Additional Health Concerns Assessment Noted Time PHQ-9 Depression Total Score: 2 07/23/19 24 9:42 AM CDT documented as of this encounter Care Teams Area Field Manager Relationship Specialty Start Date End Date Flora Smith NP [facility] [address] [place] [address] PCP - General Family Medicine 08/26/23 Mari Manning LMFT [facility] [address] [place] [address] Marriage & Family Therapist 04/15/23 Mari Manning LMFT [facility] [address] [place] [address] Assigned Behavioral Health Provider 04/24/23 Clinic - [facility] [address] [place] [address] Assigned PCP 08/31/23 documented as of this encounter
--- OUTSIDE RECORDS SUMMARY | 2024-10-27 01:02 | XMS_ITS | Encounter Summary ---
Author Organization [facility] Address [address] [place] [address] Care Team Providers Care Safety Pin Assembling Machine Operator Name Role Phone Mari Manning PRESIDENT AND CMO Unavailable [phone] Mari Manning PRESIDENT AND CMO Unavailable [phone] Flora Smith NP Primary Care Provider [facility] Encounter Details Date Type Department Care Team (Late st Contact Info) Description 01/13/2024 MyC Medical Advice [facility] [address] [place] [address] [place], LOOM STOP CHECKER Social History Tobacco Use Types Packs/Day Years [...] often do you attend chur ch or alevism services? Never 03/25/2023 Do you belong to any clubs o r organizations such as caodaism groups, unions, fraternal or athletic groups, or [...] PHQ-2 Answer Date Recorded PHQ-2 Score 0 12/27/2023 [facility] - Occupational Stress Questionnaire Answer Date Recorded [...] in an abandoned building, in an overnight halfway, or couch-surfing.) Yes 03/25/2023 Are you worried [...] Description 10/30/2024 2:00 PM CDT Virtual Visit [facility] & Addiction [address] [address] Mari Manning LMFT [facility] [address] [place] [address] 11/20/2024 12:00 PM CDT Virtual Visit [facility] & Addiction [address] [address] Mari [facility] [address] [place] [address] 12/11/2024 12:00 PM CDT Virtual Visit [facility] [address] [address] Mari Manning LMFT [facility] [address] [place] [address] 12/25/2024 12:00 PM CDT Virtual Visit [facility] & [facility] [address] [address] Mari Manning LMFT [facility] [address] [place] [address] 01/11/2025 12:30 PM CDT Virtual Visit [facility] [address] [place] [phone] Mari Manning LMFT [facility] [address] [place] [address] 01/25/2025 12:30 PM CDT Virtual Visit [facility] & Addiction [facility] [address] [place] [phone] Mari Manning LMFT [facility] [address] [place] [address] documented as of this encounter Visit Diagnoses Not on filedocumented in this encounter Additional Health Concerns Assessment Noted Time PHQ-9 Depression Total Score: 3 11/10/19 24 9:34 AM CDT documented as of this encounter Care Teams Safety Pin Assembling Machine Operator Relationship Specialty Start Date End Date Flora Smith NP [facility] [address] [place] [address] PCP - General Family Medicine 08/26/23 Mari Manning LMFT [facility] [address] [place] [address] Marriage & Family Therapist 04/15/23 Mari Manning LMFT [facility] [address] [place] [address] Assigned Behavioral Health Provider 04/24/23 Clinic - [facility] [address] [place] [address] Assigned PCP 08/31/23 documented as of this encounter
--- OUTSIDE RECORDS SUMMARY | 2024-10-27 01:02 | XMS_ITS | Clinical Summary ---
Author Organization [place] Address [address] [place] [address] Care Team Providers Care Paid Search Analyst Name Role Phone Mari Manning CLINICAL PSYCHOLOGY TEACHER Unavailable [phone] Mari Manning CLINICAL PSYCHOLOGY TEACHER Unavailable [phone] Flora Smith NP Primary Care Provider [facility] [place] Allergies No known active allergies Medications escitalopram (LEXAPRO) 10 MG tablet Take 10 mg by mouth daily 01/15/2022 Active hydrOXYzine (ATARAX) 10 MG tablet Take 1 tablet by mouth every 6 hours as needed for anxiety 05/30/2022 Active Encounters Date Type Department Care Team Description 10/16/2024 1:00 PM CDT Virtual Visit [facility] [address] [phone] Mari Manning LMFT Anxiety disorder, unspecified type (Primary Dx) 10/12/[address] [facility] & Addiction [address] [phone] Mari Manning LMFT 10/11/[address] [facility] [address] [phone] Mari Manning LMFT 10/04/2024 1:30 PM CDT Virtual Visit [facility] & Addiction [facility] [address] [place] [phone] Mari Manning LMFT Anxiety disorder, unspecified type (Primary Dx) 09/15/2024 1:00 PM CDT Virtual Visit [facility] [address] [place] [address] Mari Manning LMFT Anxiety disorder, unspecified type (Primary Dx) 08/14/2024 9:30 AM CDT Virtual Visit [facility] & Addiction [place] [place] [phone] Mari Manning LMFT Anxiety disorder, unspecified type (Primary Dx) from Last 3 Months Immunizations Immunization Administration Dates Next Due DTP-Hib 03/22/1995,01/15/1995,1994 Flu, Unspecified 06/29/2019 HIB, Unspecified 09/16/1996 HepB, Unspecified 07/19/1995 Hepatitis B, Adult (Energix- B/Recombivax HB) 01/15/1995,1994 Hepatitis B, Peds (Engerix-B/Recombivax HB) 12/1994,1994 Historical DTP/aP 10/22/1999,09/21/1996 MMR (MMRII) 01/05/1996 OPV, trivalent, live 01/15/1995,1994 Polio, Unspecified 10/22/1999,09/21/1996 TDAP (Adacel,Boostrix) 01/24/2021 TRIHIBIT (DTAP/HIB, <7y) 03/22/1995,01/15/1995,0 1994 Social History Tobacco Use Types Packs/Day Years Used Date Smoking Tobacco: Never Smokeless Tobacco: Never Tobacco Cessation:Counseling Given: Not Answered Social Connection and Isolat ion Panel [NHANES] Answer Date Recorded In a typical week, how many times do you talk on the phone with family, friends, or neighbors? Once a week 03/25/2023 How often do you get togethe r with friends or relatives? More than three times a week 03/25/2023 How often do you attend chur or yarsanism services? Never 03/25/2023 Do you belong to any clubs o r organizations such as tenriism groups, unions, fraternal or athletic groups, or [...] Answer Date Recorded PHQ-2 Score 0 09/15/2024 [facility] - Occupational [...] in an abandoned building, in an overnight intermediate, or couch-surfing.) Yes 03/25/2023 Are you worried [...] on file Sexual Orientation Not on file Last Filed Vital Signs Vital Sign Reading Time Taken Comments Blood Pressure 100/54 03/25/2023 1:[address] CROSSING GUARD Pulse 77 03/25/2023 1:[address] CROSSING GUARD Temperature 37.1 C (98.7 F) 03/25/2023 1:[address] CROSSING GUARD Respiratory Rate 18 03/25/2023 1:[address] CROSSING GUARD Oxygen Saturation 98% 03/25/2023 1:[address] CROSSING GUARD Inhaled Oxygen Concentration - - Weight 60.1 kg (132 lb 8 oz) 03/25/2023 1:[address] CROSSING GUARD Height 169.5 cm (5' 6.75) 03/25/2023 1:03 PM CS T Body Mass Index 20.91 03/25/2023 1:[address] CROSSING GUARD Plan of Treatment Upcoming Encounters Date Type Department Care Team (Late st Contact Info) Description 10/30/2024 2:00 PM CDT Virtual Visit [facility] [address] [place] [phone] Mari Manning, CLINICAL PSYCHOLOGY TEACHER [facility] [address] [place] [address] 11/20/2024 12:00 PM CDT Virtual Visit [facility] [address] [phone] Mari Manning LMFT [facility] [address] [place] [address] 12/11/2024 12:00 PM CDT Virtual Visit [facility] [address] [phone] Mari Manning LMFT [facility] [address] [place] [address] 12/25/2024 12:00 PM CDT Virtual Visit [facility] & [facility] [address] [phone] Mari Manning LMFT [facility] [address] [place] [address] 01/11/2025 12:30 PM CDT Virtual Visit [facility] & Addiction [facility] [phone] [place] [phone] Mari Manning LMFT [facility] [address] [place] [address] 01/25/2025 12:30 PM CDT Virtual Visit [facility] [id number] [place] [phone] Mari Manning LMFT [facility] [address] [place] [address] Health Maintenance Due Date Last Done Comments ADVANCE CARE PLANNING 1994 HIV SCREENING 2009 HEPATITIS C SCREENING 2012 PAP 06/26/2023 06/26/2020 COVID-19 VACCINE ( season) 2024 10/30/2020, 10/09/2020 ANNUAL REVIEW OF HM ORDERS 03/25/2024 03/25/2023 YEARLY PREVENTIVE VISIT 03/25/2024 03/25/20, 01/15/2022, 01/24/2021, Additional history exists INFLUENZA VACCINE (Season Ended) 2025 06/29/2019 DTAP/TDAP/TD VACCINE (8 - Td or Tdap) 04/19/2033 04/19/2023, 01/24/2021, 10/22/1999, Additional history exists ZOSTER VACCINE (1 of 2) 2044 HEPATITIS B VACCINE Completed 07/19/1995, 01/15/1995, 01/15/1995, Additional history exists PHQ-2 (once per calendar year) Completed 09/15/2024, 09/15/2024, 06/02/2024, Additional history exists HPV VACCINE Aged Out No longer eligi ble based on patient's age to complete this topic MENINGITIS VACCINE Aged Out No longer eligible based on patient's age to complete this topic PNEUMOCOCCAL VACCINE: PEDIATRICS (0 to 5 YEARS) AND AT-RISK PATIENTS (6 to 49 YEARS) Aged Out No longer eligible based on patient's age to complete this topic Insurance [address] [place], [place] [id number] [facility] Care Teams Paid Search Analyst Relationship Specialty Start Date End Date Flora Smith NP [facility] [address] [place] [address] PCP - General Family Medicine 08/26/23 Mari Manning LMFT [facility] [address] [place] [address] Marriage & Family Therapist 04/15/23 Mari Manning LMFT [facility] [address] [place] [address] Assigned Behavioral Health Provider 04/24/23 [facility] [address] [place] [address] Assigned PCP 08/31/23
--- OUTSIDE RECORDS SUMMARY | 2024-10-27 01:02 | XMS_ITS | Clinical Summary ---
Author Organization [facility] Address [address] [place] [address] Care Team Providers Care Event Coordinator Name Role Phone Unavailable Primary Care Provider Unavailabl e Source Comments Patient records contain information from all sites at [facility]. For routine questions regarding patient records, call [phone] during business hours, M-F 8:00 AM - 5:00 PM Central Time. Record requests for emergency care only can be directed to [phone] at any time.[facility] Allergies No known active allergies Medications uqfszdv-Qn-xblu- FA 27 mg iron- 1 mg tablet Take 1 tablet by mouth daily. Active escitalopram (LEXAPRO) 10 mg tablet Take 10 mg by mouth daily. Active Active Problems Problem Noted Date Diagnosed Date Polyhydramnios Second Trimester Single Gestation 06/22/2023 Family History Medical History Relation Name Comments No Known Problems Brother Hypertension Father 1 Kidney failure Father 1 Kidney disease Father 2 Cade Sleep apnea Father 2 Cade Mental illness Half-Sister 1 Mental illness Half-Sister 2 Mental illness Half-Sister 3 Mental illness Half-Sister 4 Stroke Maternal Grandfather 1 No Known Problems Mother Heart disease Paternal Grandfather Breast cancer Paternal Grandmother 1 Relation Name Status Comments Brother Alive Father 1 Father 2 Cade Alive Half-Sister 1 Alive Half-Sister 2 Alive Half-Sister 3 Alive Half-Sister 4 Alive Maternal Grandfather 1 Maternal Grandfather 2 Margarito Maternal Grandmother Mother Alive Paternal Grandfather Paternal Grandmother 1 Paternal Grandmother 2 Azalea Social History Tobacco Use Types Packs/Day Years Used Date Smoking Tobacco: Never Smokeless Tobacco: Never Tobacco Cessation:Counseling Given: Not Answered Alcohol Use Standard Drinks/Week Comments Not Currently 0 (1 standard drink = 0.6 oz pur e alcohol) [facility] Utilities Answer Date Recorded In the past 12 months has th e electric, gas, oil, or water company threatened to shut off services in your home? No 06/22/2023 Exercise Vital Sign Answer Date Recorde d On average, how many days pe r week do you engage in moderate to strenuous exercise (like a brisk walk)? 0 days 06/22/2023 On average, how many minutes do you engage in exercise at this level? 0 min 06/22/2023 Hunger Vital Sign Answer Date Recorded Within the past 12 months, y ou worried that your food would run out before you got the money to buy more. Never true 06/22/19 Within the past 12 months, t he food you bought just didn't last and you didn't have money to get more. Never true 06/22/2023 PRAPARE - Transportation Answer Date Re corded In the past 12 months, has l ack of transportation kept you from medical appointments or from getting medications? No 06/10 In the past 12 months, has l ack of transportation kept you from meetings, work, or from getting things needed for daily living? No 06/22/2023 Nutrition Answer Date Recorded On average, how many serving s of fruits and vegetables do you eat per day (serving size is equal to 1 cup or approximately the size of a tennis ball)? 0-2 06/22/2023 Dental Answer Date Recorded Dental: Regular Dentist No 06/22/19 Employment Answer Date Recorded Employment status Unemployed/not in e paid workforce and NOT seeking employment 06/22/2023 Housing Stability Answer Date Recorded What is your living situation today? I have a [facility] place to live 06/22/2023 Comments Unknown Sex and Gender Information Value Date Recorded Sex Assigned at Female 06/22/2023 8:01 AM STORAGE WORKER Legal Sex Female 3:33 PM STORAGE WORKER Gender Identity Female 06/22/2023 8:01 AM STORAGE WORKER Sexual Orientation Straight 06/22/2023 8: 01 AM STORAGE WORKER Last Filed Vital Signs Vital Sign Reading Time Taken Comments Blood Pressure 117/78 06/22/2023 3:34 PM STORAGE WORKER Pulse 86 06/22/2023 3:34 PM STORAGE WORKER Temperature 36.7 C (98.1 F) 06/22/2023 3:34 PM STORAGE WORKER Respiratory Rate - - Oxygen Saturation 98% 06/22/2023 3:34 PM STORAGE WORKER Inhaled Oxygen Concentration - - Weight 69.8 kg (153 lb 14.1 oz) 06/22/2023 3:34 PM STORAGE WORKER Height - - Body Mass Index - - Plan of Treatment Health Maintenance Due Date Last Done Comments Cervical/Vaginal Cancer Screening 1994 HIV Screening 1994 Hepatitis C Screening 1994 IPV Vaccines (3 of 3 - 4-dose series) 04/22/2000 10/22/1999, 09/21/1996 COVID-19 Vaccine ( season) 2024 Influenza Vaccine (#1) 2024 06/29/2019 Depression Screening (Annual PHQ-2) 05/10/2024 DTaP,Tdap,and Td Vaccines (6 - Td or Tdap) 04/19/2033 04/19/2023, 01/24/2021, 03/22/1995, Additional history exists Hepatitis B Vaccines Completed 07/19/1995, 01/15/1995, 1994 HPV Vaccines Aged Out No longer eligi ble based on patient's age to complete this topic Pneumococcal vaccine (0-49 years) Aged Out No longer eligible based on patient's age to complete this topic [place] [address] [place] [address] [place] [id number] [place] [id number]
--- OUTSIDE RECORDS SUMMARY | 2024-10-27 01:02 | XMS_ITS | Encounter Summary ---
Author Organization [facility] Address [address] [place] [address] Care Team Providers Care Marine Engine Driver Name Role Phone Flora Smith NP Primary Care Provider Flora Klein NP Unavailable Unavailable Mari Manning PATTERN DEVELOPER Unavailable Mari Manning PATTERN DEVELOPER Unavailable Flora Smith NP Primary Care Provider Radha [facility] Unavailabl e Encounter Details Date Type Department Care Team (Late st Contact Info) Description 07/12/2023 MyC Medical Advice [facility] & Addiction [facility] [address] [place] [address] Mari Manning, PATTERN DEVELOPER [facility] [address] [place], [place] [address] Social History Tobacco Use Types Packs/Day Years [...] often do you attend chur ch or jew services? Never 03/25/2023 Do you belong to any clubs o r organizations such as faith groups, unions, fraternal or athletic groups, or [...] PHQ-2 Answer Date Recorded PHQ-2 Score 0 04/15/2023 [facility] Occup[facility] - Occupational [...] your partner or ex-partner? No 03/25/2023 Comments Yes Sex and Gender Information Value Date Recorded Sex Assigned at Not on file Legal Sex Female 10:46 AM CDT Gender Identity Not on file Sexual Orientation Not on file documented as of this encounter Plan of Treatment Upcoming Encounters Date Type Department Care Team (Late st Contact Info) Description 10/30/2024 2:00 PM CDT Virtual Visit [facility] Addiction [address] [phone] Mari Manning LMFT [facility] [address] [place] [address] 11/20/2024 12:00 PM CDT Virtual Visit [facility] & Addiction [address] [phone] Mari Manning LMFT [facility] [address] [place] [address] 12/11/2024 12:00 PM CDT Virtual Visit [facility] [address] [phone] Mari Manning LMFT [facility] [address] [place] [address] 12/25/2024 12:00 PM CDT Virtual Visit [facility] Addiction [address] [phone] Mari Manning LMFT [facility] [address] [place] [address] 01/11/2025 12:30 PM CDT Virtual Visit [facility] [address] [place] [address] Mari Manning LMFT [facility] [address] [place] [address] 01/25/2025 12:30 PM CDT Virtual Visit [facility] [address] [place] [address] Mari Manning LMFT [facility] [address] [place] [address] documented as of this encounter Visit Diagnoses Not on filedocumented in this encounter Additional Health Concerns Assessment Noted Time PHQ-9 Depression Total Score: 1 04/15/20 12:57 PM WIRE THREADER documented as of this encounter Care Teams Marine Engine Driver Relationship Specialty Start Date End Date Flora Smith NP PCP - General Family Medicine 03/25/23 08/25/23 Flora Smith NP PCP - General Family Medicine 08/26/23 Flora Smith NP Assigned PCP 02/24/23 08/30/23 Mari Manning LMFT [facility] [address] [place] [address] Marriage & Family Therapist 04/15/23 Mari Manning LMFT [facility] [address] [place] [address] Assigned Behavioral Health Provider 04/24/23 Clinic - [facility] [address] [place] [address] Assigned PCP 08/31/23 documented as of this encounter
--- OUTSIDE RECORDS SUMMARY | 2024-10-27 01:02 | XMS_ITS | Encounter Summary ---
Author Organization [place] Address [address] [place] [address] Care Team Providers Care Sport Internship Name Role Phone Mari Manning PRINCIPAL SECURITY ARCHITECT Unavailable [phone] Mari Manning PRINCIPAL SECURITY ARCHITECT Unavailable [phone] Flora Smith NP Primary Care Provider [facility] Unavailabl e Encounter Details Date Type Department Care Team (Late st Contact Info) Description 10/12/2024 MyC Medical Advice [facility] Mental Health & Addiction [facility] [address] [place] [phone] Mari Manning, PRINCIPAL SECURITY ARCHITECT [facility] [address] [place], [place] [address] Social History Tobacco Use Types Packs/Day Years [...] often do you attend chur ch or buddhism services? Never 03/25/2023 Do you belong to any clubs o r organizations such as mormon groups, unions, fraternal or athletic groups, or [...] Answer Date Recorded PHQ-2 Score 0 09/15/2024 [facility] Occupat ional Health - Occupational [...] in an abandoned building, in an overnight chcf, or couch-surfing.) Yes 03/25/2023 Are you worried [...] Description 10/30/2024 2:00 PM CDT Virtual Visit [facility] & Addiction [address] [phone] Mari Manning LMFT [facility] [address] [place] [address] 11/20/2024 12:00 PM CDT Virtual Visit [facility] & Addiction [address] [phone] Mari Manning [facility]FT [facility] [address] [place] [address] 12/11/2024 12:00 PM CDT Virtual Visit [facility] & Addiction [address] [phone] Mari Manning LMFT [facility] [address] [place] [address] 12/25/2024 12:00 PM CDT Virtual Visit [facility] & Addiction [address] [address] Mari Manning [facility] [address] [place] [address] 01/11/2025 12:30 PM CDT Virtual Visit [facility] & Addiction [facility] [address] [place] [address] Mari Manning LMFT [facility] [address] [place] [address] 01/25/2025 12:30 PM CDT Virtual Visit [facility] & Addiction [facility] [address] [place] [address] Mari Manning LMFT [facility] [address] [place] [address] documented as of this encounter Visit Diagnoses Not on filedocumented in this encounter Additional Health Concerns Assessment Noted Time PHQ-9 Depression Total Score: 1 09/16/19 25 1:04 PM CDT documented as of this encounter Care Teams Sport Internship Relationship Specialty Start Date End Date Flora Smith NP [facility] [address] [place] [address] PCP - General Family Medicine 08/26/23 Mari Manning LMFT [facility] [address] [place] [address] Marriage & Family Therapist 04/15/23 Mari Manning LMFT [facility] [address] [place] [address] Assigned Behavioral Health Provider 04/24/23 [facility] [address] [place] [address] Assigned PCP 08/31/23 documented as of this encounter
--- OUTSIDE RECORDS SUMMARY | 2024-10-27 01:02 | XMS_ITS | Encounter Summary ---
Author Organization [facility] Address [address] [place] [address] Care Team Providers Care Adult Educator Name Role Phone Mari Manning ADVANCED SEAL DELIVERY SYSTEM Unavailable [phone] Mari Manning ADVANCED SEAL DELIVERY SYSTEM Unavailable [phone] Flora Smith NP Primary Care Provider [facility] Unavailabl e Encounter Details Date Type Department Care Team (Late st Contact Info) Description 10/20/2023 MyC Medical Advice [facility] Mental Health & Addiction [facility] [address] [place] [address] Mari Manning, [facility] [address] [place], [place] [phone] Social History Tobacco Use Types Packs/Day Years [...] often do you attend chur ch or judaism services? Never 03/25/2023 Do you belong to any clubs o r organizations such as episcopalian groups, unions, fraternal or athletic groups, or [...] Answer Date Recorded PHQ-2 Score 0 07/30/2023 [facility]at ional [...] Visit [facility] Addiction [address] [phone] Mari Manning LMFT [facility] [address] [place] [address] 11/20/2024 12:00 PM CDT Virtual Visit [facility] & Addiction [address] [phone] Mari Manning LMFT [facility] [address] [place] [address] 12/11/2024 12:00 PM CDT Virtual Visit [facility] Addiction [address] [phone] Mari Manning [facility] [address] [place] [address] 12/25/2024 12:00 PM CDT Virtual Visit [facility] [address] [phone] Mari Manning LMFT [facility] [address] [place] [address] 01/11/2025 12:30 PM CDT Virtual Visit [facility] Addiction [facility] [address] [place] [address] Mari Manning LMFT [facility] [address] [place] [address] 01/25/2025 12:30 PM CDT Virtual Visit [facility] Addiction [facility] [address] [place] [address] Mari Manning LMFT [facility] [address] [place] [address] documented as of this encounter Visit Diagnoses Not on filedocumented in this encounter Additional Health Concerns Assessment Noted Time PHQ-9 Depression Total Score: 2 07/23/19 24 9:42 AM CDT documented as of this encounter Care Teams Adult Educator Relationship Specialty Start Date End Date Flora Smith NP [facility] [address] [place] [address] PCP - General Family Medicine 08/26/23 Mari Manning LMFT [facility] [address] [place] [address] Marriage & Family Therapist 04/15/23 Mari Manning LMFT [facility] [address] [place] [address] Assigned Behavioral Health Provider 04/24/23 Clinic - [facility] [address] [place] [address] Assigned PCP 08/31/23 documented as of this encounter
--- OUTSIDE RECORDS SUMMARY | 2024-10-27 01:03 | XMS_ITS | Encounter Summary ---
Author Organization [facility] Address [address] [place] [address] Care Team Providers Care Laydown Machine Operator Name Role Phone Mari Manning TACK PICKER Unavailable [phone] Mari Manning TACK PICKER Unavailable [phone] Flora Smith NP Primary Care Provider [facility] [place] Unavailabl e Encounter Details Date Type Department Care Team (Late st Contact Info) Description 06/23/2024 MyC Medical Advice [facility] & [facility] [address] [place] [address] Mari Manning, TACK PICKER [facility] [address] [place], [place] [id number] Social History Tobacco Use Types Packs/Day Years [...] often do you attend chur ch or mandaen services? Never 03/25/2023 Do you belong to any clubs o r organizations such as holiness groups, unions, fraternal or athletic groups, or [...] 03/25/2023 PHQ-2 Answer Date Recorded PHQ-2 Score 1 06/02/2024 [facility] Occupat ional Health - [...] in an abandoned building, in an overnight half-way, or couch-surfing.) Yes 03/25/2023 Are you worried [...] Description 10/30/2024 2:00 PM CDT Virtual Visit [facility] [address] [address] Mari Manning LMFT [facility] [address] [place] [address] 11/20/2024 12:00 PM CDT Virtual Visit [facility] [address] [address] Mari Manning LMFT [facility] [address] [place] [address] 12/11/2024 12:00 PM CDT Virtual Visit [facility] [address] [address] Mari Manning LMFT [facility] [address] [place] [address] 12/25/2024 12:00 PM CDT Virtual Visit [facility] [address] [address] Mari Manning LMFT [facility] [address] [place] [address] 01/11/2025 12:30 PM CDT Virtual Visit [facility] [address] [place] [address] Mari Manning LMFT [facility] [address] [place] [address] 01/25/2025 12:30 PM CDT Virtual Visit [facility] [address] [place] [address] Mari Manning LMFT [facility] [address] [place] [address] documented as of this encounter Visit Diagnoses Not on filedocumented in this encounter Additional Health Concerns Assessment Noted Time PHQ-9 Depression Total Score: 4 06/02/19 25 10:01 AM INDUSTRY SEGMENT SPECIALIST documented as of this encounter Care Teams Laydown Machine Operator Relationship Specialty Start Date End Date Flora Smith NP [facility] [address] [place] [address] PCP - General Family Medicine 08/26/23 Mari Manning LMFT [facility] [address] [place] [address] Marriage & Family Therapist 04/15/23 Mari Manning LMFT [facility] [address] [place] [address] Assigned Behavioral Health Provider 04/24/23 Clinic - [facility] [address] [place] [address] Assigned PCP 08/31/23 documented as of this encounter
== END 2024-10-26 11:59 | disposition home or self-care (01) ==
LOC: US 11:58
PROVIDERS: Visit Provider Physician Assistant
DX: Z34.92 Encounter for supervision of normal pregnancy, unspecified, second trimester (principal); Z3A.32 32 weeks gestation of pregnancy
CPT/HCPCS: 76816

== ENCOUNTER 2024-11-24 07:38 | Outpatient (CLI) | payer OTHER, SELFPAY | END 2024-11-24 07:39 | disposition home or self-care (01) | LOC: NFLDREF 11-27 16:31 | PROVIDERS: Visit Provider Advanced Practice Midwife | DX: Z34.92 Encounter for supervision of normal pregnancy, unspecified, second trimester (principal); Z3A.27 27 weeks gestation of pregnancy | CPT/HCPCS: 86592 ==

== ENCOUNTER 2024-12-14 15:04 | Emergency (ER) | payer OTHER, SELFPAY ==
--- OUTSIDE RECORDS SUMMARY | 2024-10-30 14:00 | XMS_ITS | Encounter Summary ---
Author Organization [facility] Address [address] [place] [address] Care Team Providers Care Group Practice Pediatrician Name Role Phone Mari Manning CABLE INSTALLER REPAIRER Unavailable [phone] Mari Manning CABLE INSTALLER REPAIRER Unavailable [phone] Flora Smith NP Primary Care Provider [facility] [place] Unavail[facility] e Encounter Details Date Type Department Care Team (Late st Contact Info) Description 10/30/2024 2:00 PM CDT Virtual Visit [facility] Mental Health & Addiction [facility] [address] [place] [address] Mari Manning, CABLE INSTALLER REPAIRER [facility] [address] [place] [address] Anxiety disorder, unspecified type (Primary Dx) Social [...] often do you attend chur ch or shinto services? Never 03/25/2023 Do you belong to any clubs o r organizations such as mosque groups, unions, fraternal or athletic groups, or [...] Answer Date Recorded PHQ-2 Score 0 09/15/2024 [facility] of Occupat ional Health - [...] in an abandoned building, in an overnight nursing home, or couch-surfing.) Yes 03/25/2023 Are you worried [...] this encounter Progress Notes * Mari Manning, CABLE INSTALLER REPAIRER - 10/30/2024 2:00 PM CDT Images from the original note were not included. Discharge Summary Multiple Sessions Client Name: Tasia Morillo Date: 1995 Discharge Date: October 30, 2024 Service Modality: Video Visit: Provider verified identity [...] Chart Mode of Communication: Video Conference via [facility] Location (Provider): Off-site As the provider I attest to compliance with applicable laws and regulations related to telemedicine. Service Type: Individual Session Start Time: 2:00 Session End Time: 2:52 Session Length: 38-52 Session #: 40 Attendees: Client attended alone Focus of Treatment Objective(s): Client's presenting concerns included: Anxiety - coping with family of origin issues, history of trauma, motherhood Stage of Change at time of Discharge: MAINTENANCE (Working to maintain change, with risk of relapse) Medication Adherence: Yes Chemical Use: NA Assessment: Current Emotional / Mental Status (status of significant symptoms): Risk status (Self / Other harm or suicidal ideation) Client denies current fears or concerns for personal safety. Client denies current or recent suicidal ideation or behaviors. Client denies current or recent homicidal ideation or behaviors. Client denies current or recent self injurious behavior or ideation. Client denies other safety concerns. A safety and risk management plan has not been developed at this time, however client was given theafter-hours number should there be a change in any of these risk factors. Appearance: Appropriate Eye Contact: Good Psychomotor Behavior: Normal Attitude: Cooperative Orientation: All Speech Rate / Production: Normal Volume: Normal Mood: Normal Affect: Appropriate Bright Thought Content: Clear Thought Form: Coherent Logical Insight: Good DSM5 Diagnoses: (Sustained by DSM5 Criteria Listed Above) Diagnoses: Anxiety disorder, unspecified type Psychosocial & Contextual Factors: history of trauma Assessments Completed: The following assessments were completed by patient [...] Score 2 3 4 4 4 2 Reason for Discharge: Client is satisfied with progress Aftercare Plan: Client may resume counseling services at any time in the future by calling the [facility] Intake Office, . DELIA Alonzo October 30, 2024 documented in this encounter Plan of Treatment Not on file documented as of this encounter Visit Diagnoses Diagnosis Anxiety disorder, unspecified type- Primary documented in this encounter Additional Health Concerns Assessment Noted Time PHQ-9 Depression Total Score: 1 09/16/19 25 1:04 PM CDT documented as of this encounter Care Teams Group Practice Pediatrician Relationship Specialty Start Date End Date Flora Smith NP [facility] [address] [place] [address] PCP - General Family Medicine 08/26/23 Mari Manning LMFT [facility] [address] [place] [address] Marriage & Family Therapist 04/15/23 Mari Manning LMFT [facility] [address] [place] [address] Assigned Behavioral Health Provider 04/24/23 [facility] [address] [place] [address] Assigned PCP 08/31/23 documented as of this encounter
--- OUTSIDE RECORDS SUMMARY | 2024-12-14 15:07 | XMS_ITS | Encounter Summary ---
Author Organization [facility] Address [address] [place] [address] Care Team Providers Care Collection Support Specialist Name Role Phone Mari Manning REFRIGERATING OILER Unavailable [phone] Mari Manning REFRIGERATING OILER Unavailable [phone] Flora Smith NP Primary Care Provider [facility] [place] [place] Encounter Details Date Type Department Care Team (Late st Contact Info) Description 01/13/2024 MyC Medical Advice [facility] [address] [place] [address] [place], METAPHYSICIAN Social History Tobacco Use Types Packs/Day Years [...] often do you attend chur ch or mandaeism services? Never 03/25/2023 Do you belong to any clubs o r organizations such as latter day groups, unions, fraternal or athletic groups, or [...] Answer Date Recorded PHQ-2 Score 0 12/27/2023 [facility] - Occupational Stress Questionnaire Answer Date Recorded [...] in an abandoned building, in an overnight snf, or couch-surfing.) Yes 03/25/2023 Are you worried [...] as of this encounter Plan of Treatment Not on file documented as of this encounter Visit Diagnoses Not on filedocumented in this encounter Additional Health Concerns Assessment Noted Time PHQ-9 Depression Total Score: 3 11/10/19 24 9:34 AM CDT documented as of this encounter Care Teams Collection Support Specialist Relationship Specialty Start Date End Date Flora Smith NP [facility] [address] [place] [address] PCP - General Family Medicine 08/26/23 Mari Manning LMFT [facility] [address] [place] [address] Marriage & Family Therapist 04/15/23 Mari Manning LMFT [facility] [address] [place] [address] Assigned Behavioral Health Provider 04/24/23 [facility] [address] [place] [address] Assigned PCP 08/31/23 documented as of this encounter
--- OUTSIDE RECORDS SUMMARY | 2024-12-14 15:07 | XMS_ITS | Encounter Summary ---
Author Organization [facility] Address [address] [place] [address] Care Team Providers Care Lasting Machine Operator Bed Name Role Phone Mari Manning AIR DRILL OPERATOR Unavailable [phone] Mari Manning AIR DRILL OPERATOR Unavailable [phone] Flora Smith NP Primary Care Provider [facility] Unavailabl e Encounter Details Date Type Department Care Team (Late st Contact Info) Description 09/16/2023 MyC Medical Advice [facility] [address] [place] [address] Ifeoma Alvarado, CHANCE Social History Tobacco [...] often do you attend chur ch or scientology services? Never 03/25/2023 Do you belong to any clubs o r organizations such as islam groups, unions, fraternal or athletic groups, or [...] Answer Date Recorded PHQ-2 Score 0 07/30/2023 [facility] - Occupational Stress Questionnaire Answer Date Recorded [...] in an abandoned building, in an overnight fpc, or couch-surfing.) Yes 03/25/2023 Are you worried [...] documented as of this encounter Care Teams Lasting Machine Operator Bed Relationship Specialty Start Date End Date Flora Smith NP [facility] [address] [place] [address] PCP - General Family Medicine 08/26/23 Mari Manning LMFT [facility] [address] [place] [address] Marriage & Family Therapist 04/15/23 Mari Mannign LMFT [facility] [address] [place] [address] Assigned Behavioral Health Provider 04/24/23 [facility] [address] [place] [address] Assigned PCP 08/31/23 documented as of this encounter
--- OUTSIDE RECORDS SUMMARY | 2024-12-14 15:07 | XMS_ITS | Encounter Summary ---
Author Organization [facility] Address [address] [place] [address] Care Team Providers Care Drying Machine Operator Name Role Phone Mari Manning INSTRUCTIONAL TECHNOLOGIST Unavailable [phone] Mari Manning INSTRUCTIONAL TECHNOLOGIST Unavailable [phone] Flora Smith NP Primary Care Provider [facility] [place] Unavailabl e Encounter Details Date Type Department Care Team (Late st Contact Info) Description 10/11/[address] [facility] Mental Health & Addiction [facility] [address] [place] [address] Mari Manning, INSTRUCTIONAL TECHNOLOGIST [facility] [address] [place], [place] [address] Social History Tobacco Use Types Packs/Day Years [...] often do you attend chur ch or restorationism services? Never 03/25/2023 Do you belong to any clubs o r organizations such as presybeterian groups, unions, fraternal or athletic groups, or [...] Answer Date Recorded PHQ-2 Score 0 09/15/2024 [facility] of Occupat ional Health - [...] documented as of this encounter Care Teams Drying Machine Operator Relationship Specialty Start Date End Date Flora Smith NP [facility] [address] [place] [address] PCP - General Family Medicine 08/26/23 Mari Manning LMFT [facility] [address] [place] [address] Marriage & Family Therapist 04/15/23 Mari Manning LMFT [facility] [address] [place] [address] Assigned Behavioral Health Provider 04/24/23 [facility] [address] [place] [address] Assigned PCP 08/31/23 documented as of this encounter
--- OUTSIDE RECORDS SUMMARY | 2024-12-14 15:07 | XMS_ITS | Encounter Summary ---
Author Organization [facility] [place] Address [address] [place] [address] Care Team Providers Care Fishing Tool Supervisor Name Role Phone Mari Manning EXTENSION COURSE COORDINATOR Unavailable [phone] Mari Manning EXTENSION COURSE COORDINATOR Unavailable Flora Smith NP Primary Care Provider [facility]ail[facility] e Encounter Details Date Type Department Care Team (Late st Contact Info) Description 06/23/2024 MyC Medical Advice [facility] Mental Health & Addiction [facility] [address] [place] [address] Mari Manning, [facility] [address] [place], [place] [id number] Social History Tobacco Use Types Packs/Day Years [...] often do you attend chur ch or holiness services? Never 03/25/2023 Do you belong to any clubs o r organizations such as hinduism groups, unions, fraternal or athletic groups, or [...] Answer Date Recorded PHQ-2 Score 1 06/02/2024 [facility] of Occupat ional Health - [...] in an abandoned building, in an overnight skilled nursing, or couch-surfing.) Yes 03/25/2023 Are you worried [...] Total Score: 4 06/02/19 25 10:01 AM FASHION MERCHANDISER documented as of this encounter Care Teams Fishing Tool Supervisor Relationship Specialty Start Date End Date Flora Smith NP [facility] [address] [place] [address] PCP - General Family Medicine 08/26/23 Mari Manning LMFT [facility] [address] [place] [address] Marriage & Family Therapist 04/15/23 Mari Manning LMFT [facility] [address] [place] [address] Assigned Behavioral Health Provider 04/24/23 [facility] [address] [place] [address] Assigned PCP 08/31/23 documented as of this encounter
--- OUTSIDE RECORDS SUMMARY | 2024-12-14 15:07 | XMS_ITS | Clinical Summary ---
Author Organization [facility] Address [address] [place] [address] Care Team Providers Care Claim Attorney Name Role Phone Mari Manning HIGH SCHOOL GUIDANCE COUNSELOR Unavailable [phone] Mari Manning HIGH SCHOOL GUIDANCE COUNSELOR Unavailable [phone] Flora Smith NP Primary Care Provider [facility] Unavailabl e Allergies No known active allergies Medications escitalopram (LEXAPRO) 10 MG tablet Take 10 mg by mouth daily 01/15/2022 Active hydrOXYzine (ATARAX) 10 MG tablet Take 1 tablet by mouth every 6 hours as needed for anxiety 05/30/2022 Active Encounters Date Type Department Care Team Description 10/30/2024 2:00 PM CDT Virtual Visit [facility] Health & Addiction [address] [phone] Mari Manning LMFT Anxiety disorder, unspecified type (Primary Dx) 10/16/2024 1:00 PM CDT Virtual Visit [facility] & Addiction [address] [phone] Mari Manning LMFT Anxiety disorder, unspecified type (Primary Dx) 10/12/[address] [facility] & Addiction [address] [phone] Mari Manning LMFT 10/11/[address] [facility] Mental Health & Addiction [facility] [address] [place] [phone] Mari Manning LMFT 10/04/2024 1:30 PM CDT Virtual Visit [facility] [address] [place] [address] Mari Manning LMFT Anxiety disorder, unspecified type (Primary Dx) 09/15/2024 1:00 PM CDT Virtual Visit [facility] [address] [place] [address] Mari Manning LMFT Anxiety disorder, [...] How often do you attend chur or latter day services? Never 03/25/2023 Do you belong to any clubs o r organizations such as congregation groups, unions, fraternal or athletic groups, or [...] Answer Date Recorded PHQ-2 Score 0 09/15/2024 [facility] of Occupat ional Health - Occupational Stress [...] Comments Blood Pressure 100/54 03/25/2023 1:03 PM ATMOSPHERIC DRIER TENDER Pulse 77 03/25/2023 1:03 PM ATMOSPHERIC DRIER TENDER Temperature 37.1 C (98.7 F) 03/25/2023 1:03 PM ATMOSPHERIC DRIER TENDER Respiratory Rate 18 03/25/2023 1:03 PM ATMOSPHERIC DRIER TENDER Oxygen Saturation 98% 03/25/2023 1:03 PM ATMOSPHERIC DRIER TENDER Inhaled Oxygen Concentration - - Weight 60.1 kg (132 lb 8 oz) 03/25/2023 1:03 PM ATMOSPHERIC DRIER TENDER Height 169.5 cm (5' 6.75) 03/25/2023 1:03 PM CS T Body Mass Index 20.91 03/25/2023 1:03 PM ATMOSPHERIC DRIER TENDER Plan of Treatment Health Maintenance Due Date Last Done Comments ADVANCE CARE PLANNING 1994 HIV SCREENING 2009 HEPATITIS C SCREENING 2012 PAP 06/26/2023 06/26/2020 COVID-19 VACCINE ( season) 2024 10/30/2020, 10/09/2020 ANNUAL REVIEW OF HM ORDERS 03/25/2024 03/25/2023 YEARLY PREVENTIVE VISIT 03/25/2024 03/25/20 23, 01/15/2022, 01/24/2021, Additional history exists INFLUENZA VACCINE (#1) 2025 06/29/2019 DTAP/TDAP/TD VACCINE (8 - Td or Tdap) 04/19/2033 04/19/2023, 01/24/2021, 10/22/1999, Additional history exists ZOSTER VACCINE (1 of 2) 2044 HEPATITIS B VACCINE Completed 07/19/1995, 01/15/1995, 01/15/1995, Additional history exists PHQ-2 (once per calendar year) Completed 09/15/2024, 09/15/2024, 06/02/2024, Additional history exists HPV VACCINE (No Doses Required) Completed MENINGITIS VACCINE Aged Out No longer eligible based on patient's age to complete this topic PNEUMOCOCCAL VACCINE: PEDIATRICS (0 to 5 YEARS) AND AT-RISK PATIENTS (6 to 49 YEARS) Aged Out No longer eligible based on patient's age to complete this topic [place] [address] [place] [address] [facility] PMAP Care Teams Claim Attorney Relationship Specialty Start Date End Date Flora Smith NP [facility] [address] [place] [address] PCP - General Family Medicine 08/26/23 Mari Manning LMFT [facility] [address] [place] [address] Marriage & Family Therapist 04/15/23 Mari Manning [facility] [address] [place] [address] Assigned Behavioral Health Provider 04/24/23 [facility] [place] [address] [place] [address] Assigned PCP 08/31/23
--- OUTSIDE RECORDS SUMMARY | 2024-12-14 15:07 | XMS_ITS | Encounter Summary ---
Author Organization [facility] Address [address] [place] [address] Care Team Providers Care Chaser Tar Name Role Phone Flora Smith NP Primary Care Provider Flora Klein NP Unavailable Unavailable Mari Manning SLUDGE CONTROL OPERATOR Unavailable Mari Manning SLUDGE CONTROL OPERATOR Unavailable Flora Smith NP Primary Care Provider [facility] Unavailabl e Encounter Details Date Type Department Care Team (Late st Contact Info) Description 07/12/2023 MyC Medical Advice [facility] Mental Health & Addiction [facility] [address] [place] [address] Mari Manning, SLUDGE CONTROL OPERATOR [facility] [address] [place], [place] [address] Social History Tobacco Use Types Packs/Day Years [...] often do you attend chur ch or jewish services? Never 03/25/2023 Do you belong to any clubs o r organizations such as restorationist groups, unions, fraternal or athletic groups, or [...] Answer Date Recorded PHQ-2 Score 0 04/15/2023 [facility] of Occupat ional Health - Occupational Stress [...] Time PHQ-9 Depression Total Score: 1 04/15/20 23 12:57 PM ASSISTANT TRACK COACH documented as of this encounter Care Teams Chaser Tar Relationship Specialty Start Date End Date Flora Smith NP PCP - General Family Medicine 03/25/23 08/25/23 Flora Smith NP PCP - General Family Medicine 08/26/23 Flora Smith NP Assigned PCP 02/24/23 08/30/23 Mari Manning LMFT [facility] [address] [place] [address] Marriage & Family Therapist 04/15/23 Mari Manning LMFT [facility] [address] [place] [address] Assigned Behavioral Health Provider 04/24/23 [facility] [address] [place] [address] Assigned PCP 08/31/23 documented as of this encounter
--- OUTSIDE RECORDS SUMMARY | 2024-12-14 15:07 | XMS_ITS | Encounter Summary ---
Author Organization [facility] Address [address] [place] [address] Care Team Providers Care Wash Crew Person Name Role Phone Mari Manning METAL CRAFTS TEACHER Unavailable [phone] Mari Manning METAL CRAFTS TEACHER Unavailable Flora Smith NP Primary Care Provider [facility] [place] Unavailabl e Encounter Details Date Type Department Care Team (Late st Contact Info) Description 10/12/2024 MyC Medical Advice [facility] Mental Health & Addiction [facility] [address] [place] [phone] Mari Manning, METAL CRAFTS TEACHER [facility] [address] [place], [place] [address] Social History Tobacco Use Types Packs/Day Years [...] often do you attend chur ch or spiritism services? Never 03/25/2023 Do you belong to any clubs o r organizations such as gnosticism groups, unions, fraternal or athletic groups, or [...] Answer Date Recorded PHQ-2 Score 0 09/15/2024 [facility] of Occupat ional Health - [...] documented as of this encounter Care Teams Wash Crew Person Relationship Specialty Start Date End Date Flora Smith NP [facility] [address] [place] [address] PCP - General Family Medicine 08/26/23 Mari Manning LMFT [facility] [address] [place] [address] Marriage & Family Therapist 04/15/23 Mari Manning LMFT [facility] [address] [place] [address] Assigned Behavioral Health Provider 04/24/23 [facility] [address] [place] [address] Assigned PCP 08/31/23 documented as of this encounter
--- OUTSIDE RECORDS SUMMARY | 2024-12-14 15:07 | XMS_ITS | Clinical Summary ---
Author Organization [facility] Address [address] [place] [address] Care Team Providers Care Corner Block Cutter Name Role Phone Unavailable Primary Care Provider Unavailabl e Source Comments Patient records contain information from all sites at [facility]. For routine questions regarding patient records, call [phone] during business hours, M-F 8:00 AM - 5:00 PM Central Time. Record requests for emergency care only can be directed to [phone] at any time.[facility] Allergies No known active allergies Medications oynxptm-Mo-eldg- FA 27 mg iron- 1 mg tablet [...] drink = 0.6 oz pur e alcohol) [facility] Utilities Answer Date Recorded In the past 12 months has th e electric, gas, oil, or water company threatened to shut off services in your home? No 06/22/2023 Hunger Vital Sign Answer Date Recorded Within the past 12 months, y ou worried that your food would run out before you got the money to buy more. Never true 06/22/19 24 Within the past 12 months, t he [...] things needed for daily living? No 06/22/2023 Housing Stability Answer Date Recorded What is your living situation today? I have a [facility] place to live 06/22/2023 Comments Unknown Sex and Gender Information Value Date Recorded Sex Assigned at Female 06/22/2023 8:01 AM RELAY MOTORMAN Legal Sex Female 3:33 PM RELAY MOTORMAN Gender Identity Female 06/22/2023 8:01 AM RELAY MOTORMAN Sexual Orientation Straight 06/22/2023 8: 01 AM RELAY MOTORMAN Last Filed Vital Signs Vital Sign Reading Time Taken Comments Blood Pressure 117/78 06/22/2023 3:34 PM RELAY MOTORMAN Pulse 86 06/22/2023 3:34 PM RELAY MOTORMAN Temperature 36.7 C (98.1 F) 06/22/2023 3:34 PM RELAY MOTORMAN Respiratory Rate - - Oxygen Saturation 98% 06/22/2023 3:34 PM RELAY MOTORMAN Inhaled Oxygen Concentration - - Weight 69.8 kg (153 lb 14.1 oz) 06/22/2023 3:34 PM RELAY MOTORMAN Height - - Body Mass Index - - Plan of Treatment Health Maintenance Due Date Last Done Comments Cervical/Vaginal Cancer Screening 1994 HIV Screening 1994 Hepatitis C Screening 1994 IPV Vaccines (3 of 3 - 4-dose series) 04/22/2000 10/22/1999, 09/21/1996 HPV Vaccines (1 - 3-dose SCDM series) 2021 COVID-19 Vaccine ( - 2023-25 season) 2024 Depression Screening (Annual PHQ-2) 05/10/2024 Influenza Vaccine (#1) 2025 06/29/2019 DTaP,Tdap,and Td Vaccines (6 - Td or Tdap) 04/19/2033 04/19/2023, 01/24/2021, 03/22/1995, Additional history exists Hepatitis B Vaccines Completed 07/19/1995, 01/15/1995, 1994 Pneumococcal vaccine (0-49 years) Aged Out No longer eligible based on patient's age to complete this topic Insurance [facility] [place] [id number] [place] [address]
--- OUTSIDE RECORDS SUMMARY | 2024-12-14 15:07 | XMS_ITS | Encounter Summary ---
Author Organization [facility] Address [address] [place] [address] Care Team Providers Care Dynamicist Name Role Phone Mari Manning SNACK FOODS MIXER OPERATOR Unavailable [phone] Mari Manning SNACK FOODS MIXER OPERATOR Unavailable [phone] Flora Smith NP Primary Care Provider [facility] Unavailabl e Encounter Details Date Type Department Care Team (Late st Contact Info) Description 10/20/2023 MyC Medical Advice [facility] Mental Health & Addiction [facility] [address] [place] [address] Mari Manning, [facility] [address] [place], [place] [id number] Social History Tobacco Use Types Packs/Day Years [...] often do you attend chur ch or confucianism services? Never 03/25/2023 Do you belong to any clubs o r organizations such as christian groups, unions, fraternal or athletic groups, or [...] Answer Date Recorded PHQ-2 Score 0 07/30/2023 [facility] - Occupational [...] in an abandoned building, in an overnight jail, or couch-surfing.) Yes 03/25/2023 Are you worried [...] documented as of this encounter Care Teams Dynamicist Relationship Specialty Start Date End Date Flora Smith NP [facility] [address] [place] [address] PCP - General Family Medicine 08/26/23 Mari Manning LMFT [facility] [address] [place] [address] Marriage & Family Therapist 04/15/23 Mari Manning LMFT [facility] [address] [place] [address] Assigned Behavioral Health Provider 04/24/23 Clinic - [facility] [address] [place] [address] Assigned PCP 08/31/23 documented as of this encounter
[2024-12-14 15:12] VITALS: BP 113/68; PULSE 88; RESP 18; TEMP 36.3; O2SAT 98; BMI 21.6
--- NOTE | 2024-12-14 15:26 | ED_ITS ---
HPI - General Adult General Date Seen: 12/14/24 Chief complaint: Insect Bite Stated complaint: bee sting, possible allergic reaction, 30 wks preg Time Seen by Provider: 12/14/24 15:05 History of Present Illness HPI narrative: Patient is a 29-year-old young woman, generally healthy, with her 2nd child at 30 weeks. She was stung by a bee a few days ago and continues to be intensely itchy, with a little bit of swelling and local redness. No pain, no fevers. She has tried topical Benadryl and topical hydrocortisone and tried a dose of Benadryl last night poorly but is still very itchy. Related Data Home Medications ?Medication ?Instructions ?Recorded ?Confirmed docosahexaenoic acid 200 mg 200 mg PO DAILY 11/20/22 0 12/14/24 capsule ( DHA) cetirizine 10 mg capsule (Zyrtec) 10 mg PO QDAY PRN 12/14/24 Previous Rx's ?Medication ?Instructions ?Recorded hydroxyzine HCl 10 mg tablet 10 mg PO QPM PRN for inso mnia #90 10/10/24 tabs escitalopram oxalate 10 mg tablet 10 mg PO QDAY #30 ta bs 11/06/24 (Lexapro) prednisone 20 mg tablet 20 mg PO BID #6 tabs 5 Allergies Allergy/AdvReac Type Severity Reaction Status Date / Time No Known Drug Allergies Allergy Verified 12/14/24 15:15 [facility] Medical History History of eating disorder ?Z86.59 - Personal history of other mental and behavioral disorders (ICD-10) Surgical History S/P hernia surgery ?Z98.890 - Other specified postprocedural states (ICD-10) ?Z87.19 - Personal history of other diseases of the digestive system (ICD-10) Family History (Updated 07/26/24 @ 02:04 by La Walker CNM) Father Prostate cancer Kidney disease Mother Mental health disorder Social History (Updated 07/26/24 @ 02:02 by La Walker CNM) Narrative: Occupation: [id number]. Marital status: . Partner: Antonio. Lives with: and Tasia's father. Pets: 2 caps, 1 dog. changing litter box. Sabianism/cultural needs: No. Chemical or radiation exposure: No. Pre- tobacco use: No. Pre- alcohol use: no Current tobacco use: No. Current alcohol use: No. Recreational drug use: No. Dietary restrictions: No. Blood transfusion acceptable in an emergency: Yes. Planning to breastfeed: Yes. What is your current living situation?: I presently have a place to live Problems where you live: no known problems In the past 12 months, utilities in danger of being shut off: no In past 12 months, lack of transportation kept you from medical appts, meetings, work, or getting things needed for daily living: no In the past 12 mos, have been you worried that your food would run out before you had money to buy more?: never true In the past 12 mos, the food you bought just didn't last and you didn't have money to buy more?: never true Smoking Status: Never smoker Do you use any of these nicotine containing products: None Second hand tobacco smoke exposure: No How often do you have a drink containing alcohol: never How often do you have six or more drinks on one occasion: Never AUDIT-C Alcohol total score: 0 Non-prescribed substance use: denies use How often does anyone, including family, friends and others, physically hurt you : never How often does anyone, including family, friends and others, insult or talk down to you: never How often does anyone, including family, friends and others, threaten you with harm: never How often does anyone, including family, friends and others, scream or curse at you: never service: No Exam Narrative: Exam Narrative: Vital signs reviewed In general, alert, well-appearing woman. Breathing easily. Skin: Examination of the left foot shows of recent sting with some surrounding mild edema and mild erythema. No warmth, no tenderness. Distal CMS intact. Const: Vital Signs, click to edit/add: Vital Signs - 24 hr 12/14/24 15:12 Temperature 97.3 F L Pulse Rate [Pulse Oximeter] 88 Respiratory Rate 18 Blood Pressure [Ri ght Upper Arm] 113/68 Pulse Oximetry 98 Oxygen Delivery Me thod Room Air Course Course ED Course: Reviewed with her that there is nothing on exam to suggest that this is an infection, I think this is an ongoing local reaction. Will have her take Zyrtec twice a day, Benadryl as previous sedating for her. Also I am giving her few days of prednisone. She can continue with topical medications as she likes. Anticipate this will improve over the next few days. If it is getting worse instead of better she has significant pain, fever etcetera she should be seen again. She is comfortable with that plan. Vital Signs Vital signs: Initial Vital Signs Temperature 97.3 F L 12/14/24 15:12 Temperature Source Temporal Artery Scan 12/14/24 15:12 Pulse Rate 88 12/14/24 15:12 Pulse Rhythm Regular 12/14/24 15:12 Respiratory Rate 18 12/14/24 15:12 Blood Pressure 113/68 12/14/24 15:12 Blood Pressure Mean 83 12/14/24 15:12 Blood Pressure Position Sitting 12/14/24 15:12 Pulse Oximetry 98 12/14/24 15:12 Oxygen Delivery Method Room Air 12/14/24 15:12 Vital Signs Temperature 97.3 F L 12/14/24 15:12 Pulse Rate 88 12/14/24 15:12 Respiratory Rate 18 12/14/24 15:12 Blood Pressure 113/68 12/14/24 15:12 Pulse Oximetry 98 12/14/24 15:12 Oxygen Delivery Method Room Air 12/14/24 15:12 Temperature 97.3 F L 12/14/24 15:12 Pulse Rate 88 12/14/24 15:12 Respiratory Rate 18 12/14/24 15:12 Blood Pressure 113/68 12/14/24 15:12 Pulse Oximetry 98 12/14/24 15:12 Oxygen Delivery Method Room Air 12/14/24 15:12 Discharge Plan Discharge Clinical Impression: Bee sting Patient Disposition: Home, Self-Care Instructions: Insect Bite or Sting (ED) Additional Instructions: Take Zyrtec twice daily for the next few days. This can be purchased over the counter if needed. I have given you a prescription for few days of prednisone as well to help decrease the local reaction to the sting. Right now there is no sign of infection, but if you find you are having significantly worsening swelling redness particularly associated with pain or fever, you should be seen again. Prescriptions: New prednisone 20 mg tablet 20 mg PO BID Qty: 6 0RF No Action DHA 200 mg capsule 200 mg PO DAILY Zyrtec 10 mg capsule 10 mg PO QDAY PRN hydroxyzine HCl 10 mg tablet 10 mg PO QPM PRN (Reason: for insomnia) Qty: 90 0RF escitalopram oxalate [Lexapro] 10 mg tablet 10 mg PO QDAY Qty: 30 0RF Follow Up/Referrals: Provider,Not a Local [Primary Care Provider, Family Practice] Stand Alone Forms: [employer] Info Instructions
== END 2024-12-14 15:42 | disposition home or self-care (01) ==
LOC: ED 15:37
PROVIDERS: Emergency Provider Emergency Medicine
DX: T63.441A Toxic effect of venom of bees, accidental (unintentional), initial encounter (principal)
CPT/HCPCS: 99283

== ENCOUNTER 2025-01-20 17:52 | Outpatient (CLI) | payer OTHER, SELFPAY ==
[2025-01-20 18:07] VITALS: PULSE 78; O2SAT 99
[2025-01-20 18:08] VITALS: BP 107/70; PULSE 72; RESP 12; TEMP 36.8
[2025-01-20 18:31] LABS: Appearance Urine Clear (Clear)
[2025-01-20 18:49] LABS: Trichomonas No Trichomonas Seen (None Seen)
[2025-01-20 19:14] LABS: Bacterial Vaginosis* POSITIVE (Negative); Candida glab/krus NOT DETECTED (No Detected)
[2025-01-20 20:04] VITALS: BP 121/73; PULSE 78; RESP 12; TEMP 36.9
--- NOTE | 2025-01-20 22:02 | PC.OBNST ---
NST Note NST Note Start: 01/20/25 17:58 Freq: ONCE Status: Active Protocol: Document 01/20/25 17:58 BRM (Rec: 01/20/25 22:02 BRM No Response) NST Note 2 Para (# of births) 1 EDC 02/21/25 Gestational Age In 35 Weeks & 3 Days Weeks & Days Patient Presented Decreased movement with Complaint(s) of Other Complaints patient in for decreased movement and brown discharge Reactive Yes Appropriate for Yes Gestational Age RN Verónica Clark RN Date 01/20/25 Reactive Yes Appropriate for Yes Gestational Age MARGARITA Wilkinson RN Date 01/20/25 OB NST charge Yes Complete NST Note Yes via Write Note The provider's electronic signature indicates the NST is reactive/appropriate for gestational age. *Note to provider: If an addendum is required, open the patient's chart and click on the note under the Nurse/Allied Health tab.
== END 2025-01-20 20:24 | disposition home or self-care (01) ==
LOC: OB OUT 17:53 → OB 17:53
PROVIDERS: Visit Provider Advanced Practice Midwife
DX: O36.8130 Decreased fetal movements, third trimester, not applicable or unspecified (principal); Z3A.35 35 weeks gestation of pregnancy
CPT/HCPCS: 59025; 81003; 81513; 87086; 87210; 87481; 87661; G0463; A9270

== ENCOUNTER 2025-01-26 09:25 | Outpatient (CLI) | payer OTHER, SELFPAY | END 2025-01-26 09:26 | disposition home or self-care (01) | LOC: NFLDREF 01-31 13:10 | PROVIDERS: Visit Provider Advanced Practice Midwife | DX: Z34.93 Encounter for supervision of normal pregnancy, unspecified, third trimester (principal) | CPT/HCPCS: 87081; 87653 ==

== ENCOUNTER 2025-01-31 13:13 | Inpatient (IN) | payer OTHER, SELFPAY ==
[2025-01-31] VITALS (45 sets, daily range): BP systolic 93–137; BP diastolic 55–84; PULSE 70–114; RESP 16–22; TEMP 36.7–37.2; O2SAT 90–100; BMI 22.1
[2025-01-31 10:57] LABS: Amnisure Rom* POSITIVE
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
[2025-01-31 15:42] LABS: Hematocrit* 42.6 % (33.0-51.0); Hemoglobin* 14.8 gm/dL (12.0-16.0); Immature Granulocytes Pct Auto 0.3 %; Lymphocytes Absolute Auto 2.30 K/uL (0.90-2.90); Mean Corpuscular HGB Conc 35 gm/dL (32-36); Mean Corpuscular Hemoglobin 31 pg (26-34); Mean Corpuscular Volume 89 fL (80-100); RDW Coefficient of Variation % 12.3 % (11.5-15.5); Red Blood Count* 4.77 m/uL (4.00-5.20); White Blood Count* 14.77 K/uL (4.50-11.00)
[2025-01-31 15:43] LABS: Immature Granulocytes Abs Auto 0.00 K/uL (0.00-0.30); Slide Review Reflex No
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
[2025-01-31] MEDS: LACTATED RINGERS 1000 ML 1,000 ML IV (18:02)
[2025-01-31] MEDS: PHENYLEPHRINE 100 MCG/ML SYRINGE IVP (18:46)
[2025-01-31] MEDS: LIDOCAINE 2% (PF) 5 ML VIAL EPIDURAL (18:48)
[2025-01-31] MEDS: ROPIVACAINE 0.2% 100 ml 100 ML 12 MG EPIDURAL (18:48)
[2025-01-31] MEDS: OXYTOCIN 30 unit/500 ML in NS 30 UNIT/500 ML BAG 300 UNIT IVPB (19:09)
--- NOTE | 2025-01-31 19:26 | W.PM.OBVAGDE ---
OB Procedure Vag Delivery Mother Details Mother Details: The patient is a 29 year-old, 2, Para 1, admitted on 01/31/25 at Days gestation. Admission Date: 01/31/25 Additional Details Amniotic Membrane Status: SROM (With later AROM of forebag) Amniotic Membrane Rupture Date: 01/31/25 Amniotic Membrane Rupture Time: 07:30 Amniotic Membrane Fluid Description: Clear Analgesia/Anesthesia Type: Epidural Waterbirth: No Pitcoin: Yes ([facility] only) Intrapartal Events: Labor Augmentation Delivery augmentation: rupture of membranes (of forebag at 1432) Labor Onset: 15:00 Complete: 18:55 Pushin:58 Heart: Cat 2 with decels to 90s, but many areas with coincidence with MHR also. Delivery hastened by encouraging her to push. IVF bolus started. Care to promote delivery but also support patient since she was feeling triggered. I suspect this was due to rapid progression after vomiting and a window of pain of left quadrant just above pubic bone. She did beautifully. Delivery Details Delivery Date: 01/31/25 Delivery Time: 19:07 Route of delivery: Gender: Male Infant Viability: Alive; Heart Rate Present Position at Delivery: OA Delivery Details: Patient was admitted for SROM and progressed with augmentation. SROM noted at 0730 with clear fluid and + amnisure. Patient was complete at 1855 and pushing at 1858. of a viable male at 1907 in OA. Vertex delivered OA. No nuchal cord or shoulder. Body delivered easily and without incident. Infant passed to mothers abdomen with a vigorous cry. She asked me to take him since the smell was bothering her. I kept him near the bottom of the bed so the cord could remain attached. Cord was clamped and cut at 5 minutes. APGARS were 8 at one minute and 9 at five minutes respectively. Intact placenta with a 3 vessel cord delivered spontaneously at 1912. Fundus firm. No lacerations. QBL 100 cc. Mother and baby stable; mother plans to breastfeed. weight pending.? 1 Minute Interval Total Score: 8 5 Minute Interval Total Score: 9 Additional Details Shoulder Dystocia: No Placenta Delivery Time: 19:12 Placental Delivery Description: Spontaneous Procedure Done: Global Blood Loss: 100 Laceration: None Episiotomy Description: None Blood Loss Measurement Type: QBL Bakri Used: No Sponge/Need Count Correct: Yes Cord Vessel Description: 3 Vessels Event Summary Status: Mother and infant were stable after delivery. Disposition: floor
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
[2025-01-31] MEDS: IBUPROFEN 600 MG TABLET PO (21:05)
[2025-01-31] MEDS: CETIRIZINE HCL 10 MG TABLET PO (21:06)
[2025-01-31] MEDS: ESCITALOPRAM 10 MG TABLET PO (21:06)
[2025-02-01 01:23] VITALS: BP 135/85; PULSE 75; RESP 16; TEMP 36.5; O2SAT 98
[2025-02-01 04:59] VITALS: BP 127/83; PULSE 79; RESP 20; TEMP 36.5; O2SAT 97
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
[2025-02-01] MEDS: DOCUSATE SODIUM 100 MG CAPSULE PO (08:05)
[2025-02-01] MEDS: IBUPROFEN 600 MG TABLET PO (08:05)
[2025-02-01 08:06] VITALS: BP 114/76; PULSE 76; RESP 16; TEMP 36.3; O2SAT 98
[2025-02-01 12:30] VITALS: BP 109/73; PULSE 79; RESP 16; TEMP 36.6; O2SAT 96
[2025-02-01 16:16] VITALS: BP 120/83; PULSE 78; RESP 16; TEMP 36.7; O2SAT 97
[2025-02-01 19:55] VITALS: BP 107/74; PULSE 82; RESP 16; TEMP 36.4; O2SAT 98
[2025-02-01] MEDS: ESCITALOPRAM 10 MG TABLET PO (21:42)
[2025-02-01] MEDS: CETIRIZINE HCL 10 MG TABLET PO (21:43)
[2025-02-02 04:38] VITALS: BP 114/71; PULSE 75; RESP 16; TEMP 36.3; O2SAT 96
--- NOTE | 2025-02-02 07:56 | PM.OBDSVD1 ---
DS: Providers Provider Date Seen: 02/02/25 Date of admission: 01/31/25 13:13 Primary care physician: Not a Local Provider Admitting Clinician: Heather King CNM Attending Physician on discharge: Yazmin Rdz APRN, CNM DS: Diagnosis Discharge Diagnosis (1) care following vaginal delivery: Status: Acute (2) Lactating mother: Status: Acute (3) Anxiety and depression: Status: Acute Exam Narrative: Exam Narrative: GENERAL APPEARANCE:? normal affect, alert, no distress MOOD:? appropriate CHEST:? clear to auscultation HEART:? regular rate and rhythm ABDOMEN:? soft, non-tender the uterine fundus is At Umbilicus, Midline and is appropriate for the stage of recovery. PERINEUM:? mild edema of the perineum. EXTREMITIES:? normal and no edema Const: Vital Signs, click to edit/add: Vital Signs - 24 hr 02/01/25 08:06 02/01/25 12:30 02/01/25 16:16 Temperature 97.4 F L 97.9 F 98.0 F Pulse Rate [Pulse Oximeter] 76 79 78 Respiratory Rate 16 16 16 Blood Pressure [Le ft Arm] 114/76 109/73 120/83 Pulse Oximetry 98 96 97 Oxygen Delivery Me thod Room Air Room Air Room Air 02/01/25 19:55 02/02/25 04:38 Temperature 97.6 F 97.4 F L Pulse Rate [Pulse Oximeter] 82 75 Respiratory Rate 16 16 Blood Pressure [Le ft Arm] 107/74 114/71 Pulse Oximetry 98 96 Oxygen Delivery Me thod Room Air Room Air Documenting provider has reviewed patient's vital signs: yes OB - DS: Summary Hospital Course Hospital Course: Tasia is a 29 y.o. G 2 P 2 who was admitted to [facility] for SROM. ?She had a NVD that was uncomplicated. The patient feels well. ?The pain is well controlled with current medications. ?She has no new complaints. ?She is breast feeding and reports things are going well. the patient has done well.? Vitals have been stable.? She has remained afebrile.? Has a good appetite, is tolerating a general diet. ?She is voiding without difficulty.? She is passing gas and has not had a bowel movement.? She is ambulating and denies any dizziness.? Has small amount of rubra lochia. Problems: none Discharge home with baby.? Follow up in 2 weeks and 6 weeks.? , may see if needed? Hgb 14.8. ?? For pain control of perineum, breast and pelvic pain, take 600 mg Ibuprofen every 6 hours as needed by mouth or 1000 mg acetaminophen (Tylenol) every 6 hours by mouth as needed. You can alternate these so you are taking something every 3 hours as needed. A heating pad can also be used for your abdomen or breasts. You may also take docusate sodium up to twice daily to soften your stools and help to prevent constipation. You may wean off of it when your stools return to normal.? Peripartum Data Infant delivery method: Vaginal Laceration description: None complications: none Gender: Male Infant Discharge Plan: Home Status at Discharge Functional status at discharge: independent ambulation Overall status at discharge: patient is progressing back to baseline Time Spent with Patient Time attestation: Total time spent providing and/or coordinating discharge services: Time spent: Less than 30 minutes Discharge Plan Discharge Disposition: Home, Self-Care Date of Admission: 01/31/25 13:13 Attending Provider on Discharge: Yazmin Rdz Primary Care Provider: Provider,Not a Local Condition: Stable Anticipated Discharge Date/Time: 02/01/25 21:00 Discharge Medications: New acetaminophen 500 mg Tablet 1,000 mg PO Q6H PRNQty: 0 0RF docusate sodium 100 mg Capsule 100 mg PO DAILY Qty: 0 0RF ibuprofen 600 mg Tablet 600 mg PO Q6H PRNQty: 0 0RF Continued DHA 200 mg capsule 200 mg PO DAILY Zyrtec 10 mg capsule 10 mg PO QDAY PRN hydroxyzine HCl 10 mg tablet 10 - 20 mg PO QPM PRN (Reason: for insomnia) Qty: 120 2RF escitalopram oxalate [Lexapro] 10 mg tablet 10 mg PO QDAY Qty: 30 0RF Discharge Orders: Discharge Order (Routine); Ordered 02/02/25 Ordered By: Yazmin Rdz Patient Education: OB Vaginal/Breast Feeding Additional Instructions: Discharge instructions were reviewed with the patient including signs and symptoms of infection and home going medications Nothing vaginally for 6 weeks: no tampons or intercourse Off Work or School for 6 weeks 2-week visit: discuss infant feeding concerns, review control options and screen for anxiety/depression. 6-week visit for an annual exam. consultation services are available to all mothers and babies for the first year after delivery.? To make an appointment, please call [phone]. Activity Level: Activity as Tolerated Discharge Diet: Regular Follow Up Appointments: [facility] [Provider Group] Forms: Patient Belongings, [facility] Info Instructions
[2025-02-02 08:13] VITALS: BP 128/82; PULSE 78; RESP 16; O2SAT 96
== END 2025-02-02 12:01 | disposition home or self-care (01) | DRG 560 ==
LOC: OB OUT 13:14 → OB 13:14
PROVIDERS: Advanced Practice Midwife; Admitting Provider Midwife; Visit Provider Midwife
DX: O99.344 Other mental disorders complicating childbirth (principal); Z91.410 Personal history of adult physical and sexual abuse; F41.9 Anxiety disorder, unspecified; F32.A Depression, unspecified; F50.82 Avoidant/restrictive food intake disorder; F43.10 Post-traumatic stress disorder, unspecified; Z3A.37 37 weeks gestation of pregnancy; Z37.0 Single live birth
CPT/HCPCS: 01967; 36415; 84112; 85025; 86592; 86762; G0463; A9270; J2795; J3010; J7120